=== PATIENT | female | born 1970 | race African-American/Black ===

== ENCOUNTER 2024-11-17 12:12 | Emergency (ER) | payer OTHER, SELFPAY ==
--- NOTE | ~2024-11-17 | XR_ITS ---
XR hip BI 2V w AP pelvis 11/17/2024 13:18 Indication: Hip pain Procedure: 2 views each hip Comparison: No prior studies for comparison. Findings: There are surgical changes consistent with lower lumbar fusion, partially visualized. There is mild osteoarthritis of the hips. There are pelvic phleboliths. No acute fracture or traumatic mal alignment. 2 sclerotic lesions are present in the left ilium. Impression: 1: Sclerotic lesions of the left ilium which may represent benign bone islands, although metastatic d isease is not excluded. Correlate for history of malignancy. Recommend correlation with outside image s to assess stability. Reviewed, dictated and finalized at location B. Impression: 1: Sclerotic lesions of the left ilium which may represent benign bone islands, although metastatic disease is not excluded. Correlate for history of malignan cy. Recommend correlation with outside images to assess stability.
--- NOTE | ~2024-11-17 | CT_ITS ---
EXAMINATION: CT lumbar spine wo con DATE: 11/17/2024 13:02 INDICATION: Low back pain TECHNIQUE: Computed tomography (CT) of the lumbar spine was performed without intravenous contrast. A utomated exposure control and iterative reconstruction technique were employed. The dose-length produ ct was 165.14 mGy-cm. COMPARISON: None FINDINGS: Postoperative change of prior L4 and L5 laminectomies and Instrumented anterior and posterior spinal fusion at L4-L5 and L5-S1 with interbody bone graft cages at both levels and bilateral vertical stacy and pedicle screw fixation. There is no evident solid osseo us bridging yet apparent either anteriorly or posteriorly at either level. There is 3 mm anterolisthe sis L4 on L5 and 7 mm anterolisthesis L5 on S1. The interbody device at L5-S1 appears to have subluxe d slightly posteriorly with 4 mm wide lucency along the anterior margin of the device which projects approximately 3 mm posteriorly to posterior endplate margin of S1 and 10 mm posterior to the posterio r margin of L5. Vertebral body heights are normal. No acute fracture. Mild disc height loss at L3-L4. 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 Sclerotic bone i sland at the left innominate bone. Paravertebral soft tissues are unremarkable. The following disc le vels are specifically discussed: T12-L1: The disc does not extend beyond the endplate margin. There is mild bilateral facet joint oste oarthritis. There is no neural foraminal stenosis. There is no central canal stenosis. L1-L2: The disc does not extend beyond the endplate margin. There is mild bilateral facet joint osteo arthritis. There is no neural foraminal stenosis. There is no central canal stenosis. L2-L3: The disc does not extend beyond the endplate margin. There is mild bilateral facet joint osteo arthritis. There is no neural foraminal stenosis. There is no central canal stenosis. L3-L4: The margins of the disc are unable be discerned due to streak artifact from the metallic instr umentation. There is moderate bilateral facet joint osteoarthritis. There is mild bilateral neural fo raminal stenosis. There is suggestion up to moderate central canal stenosis resulting from bilateral ligamentum flavum hypertrophy however assessment is severely limited by the metallic streak artifact. L4-L5: Anterior and posterior spinal fusion procedure with posterior decompression and no evident wilner tral canal stenosis. There is no neural foraminal stenosis. L5-S1: Anterior and posterior spinal fusion procedure with posterior decompression. The posterior lab rum projecting interbody fusion device described above appears to narrow the left lateral recess. The re is mild to moderate bilateral neural foraminal stenosis. There is no central canal stenosis. IMPRESSION: 1. Postoperative changes in the inferior lumbar spine including L4 and L5 laminectomies and managemen t anterior and posterior spinal fusion as detailed above. This most notable for suggestion of some po sterior subluxation of the interbody fusion device at L5-S1 which narrows the left lateral recess. 2. Mild spondylosis in the more cephalad lumbar spine. Reviewed, dictated and finalized at location A. IMPRESSION: 1. Postoperative changes in the inferior lumbar spine including L4 and L5 kailyn ectomies and management anterior and posterior spinal fusion as detailed above. This most notable for suggestion of some posterior subluxation of the interbod y fusion device at L5-S1 which narrows the left lateral recess. 2. Mild spondylosis in the more cephalad lumbar spine.
[2024-11-17 12:23] VITALS: BP 133/90; PULSE 81; RESP 16; TEMP 36.4; O2SAT 98
--- NOTE | 2024-11-17 12:57 | ED_ITS ---
HPI - General Adult General Chief complaint: Extremity Injury, Lower <Claudia Bass PA-C - Last Filed: 11/17/24 12:59> Stated complaint: Fluid on right knee, right hip pain <Claudia Bass PA-C - Last Filed: 11/17/24 12:59> Time Seen by Provider: 11/17/24 14:18 <Claudia Bass PA-C - Last Filed: 11/17/24 12:59> Focused HPI: 54-year-old female presents to emergency department for low back pain, pain to her hips and pelvis. Patient has had back pain for several years, underwent lumbar spine surgery in 2022. States over the past month the pain is worsened and radiates down both of her legs. Denies saddle anesthesia, bowel or bladder incontinence or urinary retention. No fevers. States she did have a fall about a week ago where she slipped down 4 steps. Landed on her buttock. Did not hit her head or lose consciousness. Has been having to ambulate with a walker due to pain. GENERAL: Well-appearing, well-nourished, and in no acute distress. HEAD: Normocephalic, atraumatic. CHEST: Clear to auscultation. ?No respiratory distress. BACK: Well-healed lumbar surgical scar with diffuse tenderness to the lumbar spine paraspinous muscles, posterior pelvis and iliac crest, bilateral piriformis muscles and bilateral hips. HEART: Regular rate and rhythm.? NEURO: ?Alert and oriented x3. Patient screened in triage and initial orders placed.? ?Additional care and disposition to be based upon?diagnostic testing and treatment. <Claudia Bass PA-C - Last Filed: 11/17/24 12:59> History of Present Illness HPI narrative: Patient 54-year-old female who presents emergency department chief complaint of low back and pelvis pain. The patient has prior history of a lumbar spine surgery [facility] reports she was seen at [facility] last week reports she has an appointment to see her spine surgeon in 2 weeks reports that she did have a fall about a week ago and reports that she has had no saddle anesthesia no bowel or bladder incontinence <Caio Hoffman MD - Last Filed: 11/17/24 15:57> Related Data Allergies/adverse reactions: Allergies Allergy/AdvReac Type Severity Reaction Status Date / Time No Known Allergies Allergy Verified 11/17/24 12:14 <Claudia Bass PA-C - Last Filed: 11/17/24 12:59> Review of Systems Review of Systems: A 10 system review of systems was completed on the patient and is negative except for what is stated in the HPI. Nursing and ancillary documentation was reviewed. <Caio Hoffman MD - Last Filed: 11/17/24 15:57> Exam Narrative: GENERAL: Well-appearing, well-nourished, and in no acute distress. HEAD: Normocephalic, atraumatic. EYES: PERRLA and EOMI. ENT: Nares clear, no rhinorrhea or epistaxis. Mucous membranes moist. NECK: Supple. CHEST: Clear to auscultation. No respiratory distress. HEART: Regular rate and rhythm. No murmur heard. Normal peripheral pulses. ABDOMEN: Soft, nontender, nondistended, normal active bowel sounds. EXTREMITIES: Normal range of motion. No edema. SKIN: Warm, dry, no rash. NEURO: No focal deficits. Alert and oriented x3. PSYCH: Normal mood and affect. <Caio Hoffman MD - Last Filed: 11/17/24 15:57> Course Vital Signs Vital signs: Vital Signs Temperature 36.4 C 11/17/24 12:23 Pulse Rate 81 11/17/24 12:23 Respiratory Rate 16 11/17/24 12:23 Blood Pressure 133/90 11/17/24 12:23 Pulse Oximetry 98 11/17/24 12:23 Temperature 36.4 C 11/17/24 12:23 Pulse Rate 81 11/17/24 12:23 Respiratory Rate 16 11/17/24 12:23 Blood Pressure 133/90 11/17/24 12:23 Pulse Oximetry 98 11/17/24 12:23 <Claudia Bass PA-C - Last Filed: 11/17/24 12:59> Vital Signs Temperature 36.4 C 11/17/24 12:23 Pulse Rate 81 11/17/24 12:23 Respiratory Rate 16 11/17/24 12:23 Blood Pressure 133/90 11/17/24 12:23 Pulse Oximetry 98 11/17/24 12:23 Temperature 36.4 C 11/17/24 12:23 Pulse Rate 81 11/17/24 12:23 Respiratory Rate 16 11/17/24 12:23 Blood Pressure 133/90 11/17/24 12:23 Pulse Oximetry 98 11/17/24 12:23 <Caio Hoffman MD - Last Filed: 11/17/24 15:57> Medical Decision Making MDM Narrative Medical decision making narrative: Differential diagnosis includes hardware failure, low back pain CT scan was obtained of the lumbar spine which did show some narrowing but no evidence of hardware failure <Caio Hoffman MD - Last Filed: 11/17/24 15:57> Vital Signs Vital Signs: Vital Signs Temperature 36.4 C 11/17/24 12:23 Pulse Rate 81 11/17/24 12:23 Respiratory Rate 16 11/17/24 12:23 Blood Pressure 133/90 11/17/24 12:23 Pulse Oximetry 98 11/17/24 12:23 Temperature 36.4 C 11/17/24 12:23 Pulse Rate 81 11/17/24 12:23 Respiratory Rate 16 11/17/24 12:23 Blood Pressure 133/90 11/17/24 12:23 Pulse Oximetry 98 11/17/24 12:23 <Claudia Bass PA-C - Last Filed: 11/17/24 12:59> Vital Signs Temperature 36.4 C 11/17/24 12:23 Pulse Rate 81 11/17/24 12:23 Respiratory Rate 16 11/17/24 12:23 Blood Pressure 133/90 11/17/24 12:23 Pulse Oximetry 98 11/17/24 12:23 Temperature 36.4 C 11/17/24 12:23 Pulse Rate 81 11/17/24 12:23 Respiratory Rate 16 11/17/24 12:23 Blood Pressure 133/90 11/17/24 12:23 Pulse Oximetry 98 11/17/24 12:23 <Caio Hoffman MD - Last Filed: 11/17/24 15:57> Discharge Plan Discharge Clinical Impression: Low back pain <Claudia Bass PA-C - Last Filed: 11/17/24 12:59> Patient Disposition: Home <Claudia Bass PA-C - Last Filed: 11/17/24 12:59> Condition: Stable <PATRICIA Ayala Last Filed: 11/17/24 12:59> Instructions: Antibiotic Form, Acute Low Back Pain (ED) <PATRICIA Ayala Last Filed: 11/17/24 12:59> Additional Instructions: Your CT scan showed that the hardware is in place there is some narrowing in the spine below the area of the hardware it is recommended that you follow-up with your spine surgeon <Claudia Bass PA-C - Last Filed: 11/17/24 12:59> Patient Language: Estonian <PATRICIA Ayala Last Filed: 11/17/24 12:59> Prescriptions: New lidocaine [Lidoderm] 5 % adhesive patch,medicated 1 patch topical DAILY Qty: 15 0RF Rx Instructions: leave on most painful area for up to 12 hrs prednisone 20 mg tablet 40 mg PO DAILY 5 Days Qty: 10 0RF hydrocodone-acetaminophen 5-325 mg tablet 1 tablet PO Q6H PRN (Reason: pain) 3 Days Qty: 12 0RF diclofenac potassium 50 mg tablet 50 mg PO TID PRN (Reason: pain) Qty: 30 0RF <Claudia Bass PA-C - Last Filed: 11/17/24 12:59> Follow-up/Referrals: PHYSICIAN NOT ON STAFF,NONSTAFF [Non-Staff] - <Claudia Bass PA-C - Last Filed: 11/17/24 12:59> Time of Disposition: 15:54 <Claudia Bass PA-C - Last Filed: 11/17/24 12:59> 15:54 <Caio Hoffman MD - Last Filed: 11/17/24 15:57>
--- OUTSIDE RECORDS SUMMARY | 2024-11-17 13:21 | XMS_ITS | Clinical Summary ---
Author Organization [facility] Address [address] [place] [address] Care Team Providers Care Barrel Assembler Helper Name Role Phone Unavailable Primary Care Provider Unavailabl e Source Comments [facility],non-owned Affiliates and Associated Physician Practices is amultiple site organization consisting of ambulatory clinics and hospital sitesin [place], [place], [place] and [place]. This disclosure is being madepursuant to the Care Everywhere program and may not contain all information available regarding this patient. Last updated 18.[facility] Allergies No known active allergies Medications * Be aware that medications may not be up to date on this document. Alwaysverify current medications with the patient. tiZANidine (ZANAFLEX) 4 MG tablet Take 1 (one) tablet by mouth every 8 hours as needed 1 Active propranolol (INDERAL) 10 MG tablet Take by mouth 2 times daily 1 Active fluticasone-sa lmeterol (Advair/Wixela ) 100-50 MCG/ACT inhaler Inhale 1 (one) puff by mouth 2 times daily Active albuterol-ipra tropium (Duo-Neb) 0.5-2.5 (3) MG/3ML nebulizer solution Inhale 3 mL by mouth 4 times daily Active pregabalin (Lyrica) 75 MG capsule Take 2 (two) capsules by mouth 2 times daily Active nicotine polacrilex (Nicorette) 2 MG gumIndications :Nicotine Dependence Take 1 (one) Each by mouth as needed for Smoking Cessation Reasons: Nicotine Addiction Active acetaminophen (Tylenol) 500 MG tablet Take 1 (one) tablet by mouth every 4 hours as needed for Fever or Pain Maximum allowable Acetaminophen amount = 4 Grams (4000 mg) / 24 hours. Active traMADol (Ultram) 50 MG tablet Take 1 (one) tablet by mouth every 4 hours as needed 0 3 Active lidocaine (Lidoderm) 5 % patch Apply 1 (one) patch to skin every 24 hours Apply patch to most painful area and remove after 12 hours. May reapply a new patch 12 hours later. 30 patch 1 3 Active senna (Senokot) 8.6 MG tablet Take 1 (one) tablet by mouth once daily 30 tablet 1 3 Active Additional Information Patient not taking.Reported on 03/11/2023 naloxone HCl (Narcan) 4 MG/0.1ML nasal spray CALL 911. USE 1 SPRAY INTO 1 NOSTRIL. MAY REPEAT EVERY 2-3 MINUTES IN ALTERNATING NOSTRILS IF NO RESPONSE. 3 Each 3 Active Covid Pfizer booster bivalent 12+years 30 MCG/0.3ML SUSP injection PHARMACIST TO ADMIN 0.3 ML INTO LEFT DELTOID MUSCLE. BUILDING CLEANER: M-Factor, VIS: 07/11/22, LOT: [id number], EXP DATE: 09/03/23. VIS GIVEN: 10/14/22 0.3 mL 3 Active Additional Information Patient not taking.Reported on 10/24/2022 oxyCODONE (Oxy-Ir) 5 MG capsuleIndicat ions:Late effects of spine fusion Take 1 (one) capsule by mouth every 6 hours as needed for Pain 45 capsule 3 Active Additional Information Patient not taking.Reported on 03/11/2023 cyclobenzaprin e (Flexeril) 10 MG tabletIndicati ons:S/P lumbar spinal fusion,Spasm of muscle TAKE 1 TABLET BY MOUTH THREE TIMES A DAY ( EVERY 8 HOURS ) 90 tablet 3 3 Active Hospital, Clinic, or Other Facility Administered Medication Ordered Dose Route Frequency Start Date End Date Status oxyCODONE-acetaminoph en (Percocet) 5-325 MG tablet 1 tabletIndications:Fus ion of lumbar spine 1 tablet PO EVERY 8 HOURS PRN 12/20/2022 Active oxyCODONE-acetaminoph en (Percocet) 5-325 MG tablet 1 tabletIndications:Fus ion of lumbar spine 1 tablet PO EVERY 8 HOURS PRN 12/20/2022 Active Active Problems Problem Noted Date Diagnosed Date Lumbar stenosis with neurogenic claudication 09/2022 DEVIN (acute kidney injury) 06/25/2021 Overview (06/11/2022): Last Assessment & Plan: Patient presented with hypotension and elevated creatinine likely secondary to dehydration. Treat with IV fluids. Monitor BMP closely Facial droop 06/25/2021 Overview (06/11/2022): Last Assessment & Plan: Patient presented with left-sided facial drooping with suspicion for acute or subacute stroke. CT scan was negative. Treat with aspirin and statins. Will initiate stroke workup and get 2D echo and carotid Doppler. Neurology has been consulted 06/26/21-Pt still complaining of severe headaches.Will get MRI today.BUN/Creat is improved.Cont to monitor closely. Left-sided headache 06/24/2021 Overview (06/11/2022): Last Assessment & Plan: Patient presented with left-sided headache. Treat with pain management. 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 Continue to monitor closely. Anemia 05/07/2021 Resolved Problems Problem Noted Date Diagnosed Date Resolved Date Acute cystitis 06/25/2021 10/03/2022 Overview (06/11/2022): Last Assessment & Plan: Pt c/o of flank pain and found to be hypotensive.Treated with iv fluids and iv antibiotics.Cont iv Rocephine. Dehydration 06/25/2021 06/25/2022 Overview (06/11/2022): Last Assessment & Plan: Treat with IV fluids. Encounters Date Type Department Care Team Description 11/16/2024 Travel 11/15/2024 Orders Only [facility] - Neurosurgery [address], [place] [id number] Juan M Neal MD S/P lumbar fusion 11/02/2024 Travel 09/14/2024 Travel from Last 3 Months Immunizations Immunization Administration Dates Next Due INFLUENZA VACCINE, QUADR. (F LUZONE; FLULAVAL; FLUARIX; AFLURIA QUADRIVALENT; 6MO+), 0.5 ML (IIV4) 06/22/2021 Social History Tobacco Use Types Packs/Day Years Used Date Smoking Tobacco: Some Days Cigarettes Started: 04/23/1989 Smokeless Tobacco: Never Tobacco Cessation:Ready to Q uit: Not Asked; Counseling Given: Not Answered Comments:Last cigarette 07/28/2022 Alcohol Use Standard Drinks/Week Comments Yes 2 (1 standard drink = 0.6 oz pur e alcohol) AUDIT-C Answer Date Recorded Q1: How often do you have a drink containing alc ohol? Monthly or less 10/03/2022 Q2: How many drinks containi ng alcohol do you have on a typical day when you are drinking? 1 or 2 10/03/2022 Q3: How often do you have si x or more drinks on one occasion? Less than monthly 10/03/2022 PHQ-2 Answer Date Recorded PHQ2 TOTAL SCORE 0 06/11/2022 Comments No Sex and Gender Information Value Date Recorded Sex Assigned at Not on file Legal Sex Female 9:04 AM CDT Gender Identity Not on file Sexual Orientation Not on file Last Filed Vital Signs Vital Sign Reading Time Taken Comments Blood Pressure 118/83 03/11/2023 10:21 AM CDT Pulse 71 03/11/2023 10:21 AM CDT Temperature 36.4 C (97.6 F) 03/11/2023 10:21 AM CDT Respiratory Rate 18 10/24/2022 2:28 PM CDT Oxygen Saturation 96% 03/11/2023 10:21 AM CDT Inhaled Oxygen Concentration - - Weight 60.3 kg (133 lb) 03/11/2023 10:21 AM CDT Height 172.7 cm (5' 8 ) 03/11/2023 10:21 AM CDT Body Mass Index 20.22 03/11/2023 10:21 AM CDT Plan of Treatment Upcoming Encounters Date Type Department Care Team (Late st Contact Info) Description 12/07/2024 10:45 AM CDT Office Visit [facility] - Neurosurgery [address] [place] [address], [place] [address] CoppensJuan M MD [address] [place] [address] [place] [address] Health Maintenance Due Date Last Done Comments COLOGUARD (AGES 45-75) - COL ON CA SCREENING 1971 COLON MONITORING 1971 COLONOSCOPY - COLON CA SCREENING 1971 CT COLONOGRAPHY - COLON CA SCREENING 1971 Colorectal Cancer Screening 1971 FIT - COLON CA SCREENING 1971 FLEX SIG - COLON CA SCREENING 1971 LIPID TESTING 1971 MAMMOGRAM 1971 PAP SMEAR 1971 HIV SCREENING 1986 HEPATITIS C SCREENING 08/30/1989 DTAP/TDAP/TD VACCINES (1 - Tdap) 1990 HEPATITIS B VACCINE (1 of 3 - 19+ 3-dose series) 1990 PNEUMOCOCCAL VACCINE 50+ (1 of 2 - PCV) 1990 ZOSTER VACCINE (1 of 2) 2021 COVID-19 VACCINE (4 - 2023-2 5 season) 2024 10/14/2022, 11/30/2020, 10/26/2020 DEPRESSION SCREENING 08/04/2024 06/11/2022 INFLUENZA VACCINE (Season Ended) 2025 05/23/2022, 06/22/2021, 06/17/2019 HIB VACCINE Aged Out No longer eligi ble based on patient's age to complete this topic HPV VACCINE Aged Out No longer eligi ble based on patient's age to complete this topic MENINGOCOCCAL (Group B) VACCINE SHARED DECISION-MAKING Aged Out No longer eligible based on patient's age to complete this topic MENINGOCOCCAL GROUPS A/C/Y/W VACCINE Aged Out No longer eligible b ased on patient's age to complete this topic Medical Devices Implanted Type Area Human Resources Designate Device Identifier Shelf Expiration Date Model / Serial / Lot Payne Spinal Graft/Payne Dbf Inject 9cc Implanted:Qty: 1 on 10/03/2022 by Juan M Neal MD at [facility] N/A: Spine Lumbar Med[employer] Inc 08/22/2024 [id number] / [id number] / N/A Screw Set Ti Spnl Brk Off Cd Hzn Nonster Implanted:Qty: 6 on 10/03/2022 by Juan M Neal MD at [facility] N/A: Spine Lumbar [employer] Inc [id number] / / Screw 7.5mm 50mm Ma Spne Solera Cd Hzn Implanted:Qty: 4 on 10/03/2022 by Juan M Neal MD at [facility] N/A: Spine Lumbar [employer] Inc [id number] / / Screw 7.5mm 40mm Ma Spne Solera Cd Hzn Implanted:Qty: 2 on 10/03/2022 by Juan M Neal MD at [facility] N/A: Spine Lumbar [employer] Inc [id number] / / Spcr Spnl 7mm Catalyft Pl Lng - Sn/A Implanted:Qty: 2 on 10/03/2022 by Juan M Neal MD at [facility] N/A: Spine Lumbar Medtronic Sofamor Danek Spine 08/23/2030 [id number] / N/A / [id number] Medtronic Payne Dbf Inject 9cc Implanted:Qty: 1 on 10/03/2022 by Juan M Neal MD at [facility] N/A: Spine Lumbar Med[employer]onic Inc 08/14/2024 [id number] / [id number] / N/A Bang Spnl 60mm 5.5mm Cd Hzn Crv Ti Cp4 - Sn/A Implanted:Qty: 2 on 10/03/2022 by Juan M Neal MD at [facility] N/A: Spine Lumbar Med[employer]onic Inc [id number] / N/A / N/A Insurance [facility] [place] [address] [address] [facility] [place] [address] [place] [address] [facility] [address] [address] [address] [facility] [address] [address] [place] [address] [place] [address] [facility] [place] [address] [facility] [place] [address] [facility] [address] [address] [address] [place] [address] [facility] [address] [address] [place] [address] [place] [address] [facility] [place] [address] [facility] [id number] [facility] [place] [address] [place] [address] [place], [place] [id number] [place] [address] [place] [address] Advance Directives * Full Code (Latest Code Status on File) Date Activated Date Inactivated Comments 10/03/2022 12:13 PM 10/07/2022 12:38 PM
--- OUTSIDE RECORDS SUMMARY | 2024-11-17 13:21 | XMS_ITS | Clinical Summary ---
Author Organization [facility] Address [address] [place] [id number] Care Team Providers Care Nitro Man Name Role Phone Kojo Stallworth MD Primary Care Provider [phone] Social History Tobacco Use Types Packs/Day Years Used Date Smoking Tobacco: Never Assessed Comments Unknown Sex and Gender Information Value Date Recorded Sex Assigned at Not on file Legal Sex Female 7:50 PM CDT Gender Identity Not on file Sexual Orientation Not on file Plan of Treatment Health Maintenance Due Date Last Done Comments Cervical Cancer Screening Pa p Smear (Age 30 to 64) Every 3 Years 1971 Colorectal Cancer Screening Colonoscopy (10 Years) 1971 Annual Physical 1974 Hepatitis C 1989 DTaP, Tdap and Td Vaccines ( 1 - Tdap) 1990 Hepatitis B Vaccines (1 of 3 - 19+ 3-dose series) 1990 Cervical Cancer Screening Pa p with HPV Testing (Age 30 to 64) Every 5 Years 2001 Cervical Cancer Screening with HPV 2001 Mammogram Screening 2011 Zoster Vaccines (1 of 2) 2021 COVID-19 Vaccine ( - 2023-2 5 season) 2024 Meningococcal B Vaccine Aged Out No l onger eligible based on patient's age to complete this topic Meningococcal Vaccine Aged Out No ronan milo eligible based on patient's age to complete this topic Pneumococcal Vaccine: Pediat rics (0 to 5 Years) and At-Risk Patients (6 to 49 Years) Aged Out No longer eligible b ased on patient's age to complete this topic RSV Immunizations Under 20 Months Aged Out No longer eligible based on patient's age to complete this topic Care Teams Nitro Man Relationship Specialty Start Date End Date Kojo Stallworth MD [address] [address] PCP - General 01/26/15
--- OUTSIDE RECORDS SUMMARY | 2024-11-17 13:21 | XMS_ITS | Clinical Summary ---
Author Organization [facility] Address [address] [place] [address] Care Team Providers Care Surgical Training Specialist Name Role Phone Kooj Stallworth MD Primary Care Provider Allergies No known active allergies Medications albuterol HFA (PROVENTIL HFA,VENTOLIN HFA,PROAIR HFA) 90 mcg/actuation inhaler INHALE 2 PUFFS BY MOUTH NEEDED 04/04/2021 Active propranoloL (INDERAL) 10 mg tablet Take 1 tablet (10 mg total) by mouth 2 (two) times a day 04/11/2021 Active tiZANidine (ZANAFLEX) 4 mg tablet Take 1 tablet (4 mg total) by mouth every 8 (eight) hours as needed 04/11/2021 Active acetaminophen (TYLENOL) 325 mg tabletIndicatio ns:Fever,Pain Take 2 tablets (650 mg total) by mouth every 4 (four) hours as needed for pain 12 tablet 11/21/2023 Active NIFEdipine (PROCARDIA XL/ADALAT CC) 30 mg 24 hr tablet Take 1 tablet (30 mg total) by mouth daily 30 tablet 11/22/2023 Active oxyCODONE-aceta minophen (PERCOCET) 5-325 mg per tabletIndicatio ns:Pain Take 1 tablet by mouth every 8 (eight) hours as needed for other (Mod Pain) 8 tablet 11/21/2023 Active HYDROcodone-blake taminophen (NORCO) 5-325 mg per tabletIndicatio ns:Pain Take 1 tablet by mouth every 6 (six) hours as needed for pain 8 tablet 11/01/2024 Active Active Problems Problem Noted Date Diagnosed Date Cellulitis 11/19/2023 Cellulitis of right foot 11/18/2023 Facial droop 06/25/2021 Assessment & Plan (06/26/2021 7:17 PM CREDIT COUNSELOR): Patient presented with left-sided facial drooping with suspicion for acute or subacute stroke. CT scan was negative. Treat with aspirin and statins. Will initiate stroke workup and get 2D echo and carotid Doppler. Neurology has been consulted 06/26/21-Pt still complaining of severe headaches.Will get MRI today.BUN/Creat is improved.Cont to monitor closely. Dehydration 06/25/2021 Assessment & Plan (06/25/2021 1:11 PM CREDIT COUNSELOR): Treat with IV fluids. DEVIN (acute kidney injury) 06/25/2021 Assessment & Plan (06/25/2021 1:12 PM CREDIT COUNSELOR): Patient presented with hypotension and elevated creatinine likely secondary to dehydration. Treat with IV fluids. Monitor BMP closely Acute cystitis 06/25/2021 Assessment & Plan (06/25/2021 10:01 PM CREDIT COUNSELOR): Pt c/o of flank pain and found to be hypotensive.Treated with iv fluids and iv antibiotics.Cont iv Rocephine. Left-sided headache 06/24/2021 Assessment & Plan (06/25/2021 1:08 PM CREDIT COUNSELOR): Patient presented with left-sided headache. Treat with pain management. 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 Continue to monitor closely. Anemia 05/07/2021 Encounters Date Type Department Care Team Description 11/01/2024 5:01 PM CDT - 11/01/2024 6:45 PM CDT Emergency [facility] [address] [place] [address] Bilateral hip pain (Primary Dx) Discharge Disposition: Discharge to home or self care from Last 3 Months Immunizations Immunization Administration Dates Next Due Influenza, Quadrivalent, Spl it, Preservative Free, Intramuscular 06/22/2021 Pfizer SARS-CoV-2 Monovalent Vaccination (12+ Yrs) PURPLE 11/30/2020,10/26/2020 Surgical History Surgery Date Site/Laterality Comments TUBAL LIGATION 09/14/2001 SECTION Medical History Medical History Date Comments Hypertension Mitral valve prolapse Osteoarthritis Degenerative disc disease, lumbar Sciatica COPD (chronic obstructive pulmonary disease) (HC C) Raynaud disease Pulmonary nodules Mediastinal mass Abdominal hernia Depression Family History Medical History Relation Name Comments Alcohol abuse Father Depression Mother Hypertension Mother Lung cancer Sister 2 Dinorah Relation Name Status Comments Brother Germain Alive Father Mother Alive Sister 1 Juan Miguel Alive Sister 2 Dinorah Social History Tobacco Use Types Packs/Day Years Used Date Smoking Tobacco: Some Days Cigarettes 0.3 35 Smokeless Tobacco: Former Tobacco Cessation:Ready to Q uit: Yes; Counseling Given: Yes Comments:5 or less daily Alcohol Use Standard Drinks/Week Comments Never 0 (1 standard drink = 0.6 oz pur e alcohol) [facility] Utilities Answer Date Recorded In the past 12 months has [employer], gas, oil, or water [employer] threatened to shut off services in your home? No 11/20/2023 Social Connection and Isolat ion Panel [NHANES] Answer Date Recorded In a typical week, how many times do you talk on the phone with family, friends, or neighbors? More than three times a week 11/20/2023 How often do you get togethe r with friends or relatives? More than three times a week 11/20/2023 How often do you attend chur ch or methodist services? 1 to 4 times per year 11/20/2023 Do you belong to any clubs o r organizations such as muslim groups, unions, fraternal or athletic groups, or school groups? Yes 11/20/2023 How often do you attend meet ings of the clubs or organizations you belong to? Never 11/20/2023 Are you , , di vorced, , never , or living with a partner? 11/20/2023 AUDIT-C Answer Date Recorded Q1: How often do you have a drink containing alc ohol? Never 06/20/2021 Average Number of Drinks Not on file 021 Q3: How often do you have si x or more drinks on one occasion? Never 06/20/2021 Overall Financial Resource Strain (CARDIA) Answe r Date Recorded How hard is it for you to pa y for the very basics like food, housing, medical care, and heating? Not hard at all 11/20/2023 Hunger Vital Sign Answer Date Recorded Within the past 12 months, y ou worried that your food would run out before you got the money to buy more. Never true 11/20/19 24 Within the past 12 months, t he food you bought just didn't last and you didn't have money to get more. Never true 11/20/2023 PRAPARE - Transportation Answer Date Re corded In the past 12 months, has l ack of transportation kept you from medical appointments or from getting medications? No 11/02 In the past 12 months, has l ack of transportation kept you from meetings, work, or from getting things needed for daily living? No 11/20/2023 Housing Stability Vital Sign Answer Josh e Recorded In the last 12 months, was t here a time when you were not able to pay the mortgage or rent on time? No 11/20/2023 In the last 12 months, how many places have you lived? 1 11/20/2023 In the last 12 months, was t here a time when you did not have a steady place to sleep or slept in a group home (including now)? No 11/20/2023 Personal Safety Answer Date Recorded Have you ever been in or are you currently in a harmful physical or emotional relationship or is someone making you feel afraid or unsafe? 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 on file Not on file Not on file Obstetrics History Last Filed Vital Signs Vital Sign Reading Time Taken Comments Blood Pressure 139/96 11/01/2024 6:35 PM CDT Pulse 60 11/01/2024 6:35 PM CDT Temperature 36.8 C (98.2 F) 11/01/2024 5:27 PM CDT Respiratory Rate 18 11/01/2024 6:35 PM CDT Oxygen Saturation 100% 11/01/2024 6:35 PM CDT Inhaled Oxygen Concentration - - Weight 53.5 kg (118 lb) 11/01/2024 5:27 PM CDT Height 175.3 cm (5' 9 ) 11/01/2024 5:27 PM CDT Body Mass Index 17.43 11/01/2024 5:27 PM CDT Plan of Treatment Health Maintenance Due Date Last Done Comments Cervical Cancer Screening 1971 Colon Cancer Screening-Colonoscopy 1971 Depression Screening 1971 Hepatitis C Screening 1971 DTaP/Tdap/Td Vaccine (1 - Tdap) 1982 Hepatitis B Screening 1989 Regular Well Visit/Exam 18-64 1989 Pneumococcal vaccine <65 (1 of 2 - PCV) 1990 Zoster Vaccine (1 of 2) 2021 Covid-19 Vaccine (3 - season) 2024, 10/26/2020 Influenza Vaccine (Season Ended) 2025 05/23/2022, 06/22/2021, 06/17/2019 Breast Cancer Screening-Mammogram 06/16/2025 024 Procedures Procedure Name Priority Date/Time Associated Diagnosis Comments XR HIPS BILATERAL W PELVIS 2 VIEW ED 11/01/2024 1:23 PM CDT from Last 3 Months Results * XR Hips Bilateral W Pelvis 2 View (11/01/2024 1:23 PM CDT) Anatomical Region Laterality Modality Lower Extremities, Hip, Pelvis Bilateral C omputed Radiography 11/01/2024 1:48 PM CDT Narrative 11/01/2024 1:53 PM CDT EXAM DESCRIPTION: XR HIPS BILATERAL 2 VIEWS W PELVIS REASON FOR STUDY: pain Pt with bilat hip. Low back pain, denies trauma Back surg in 2019 TECHNIQUE: Single view of the pelvis and two views of each hip. COMPARISON: CT abdomen pelvis 11/26/2013 FINDINGS: There is incompletely imaged lower lumbar spine fusion hardware. There is no acute fracture or dislocation appreciated. There are mild osteoarthritic changes of the bilateral hips. There is a small sclerotic lesion along the superior aspect of the left acetabulum which appears unchanged and likely represents a bone island. There are multiple phleboliths in the pelvis. Ywxypsix-tk-epalv amount of stool in the visualized colon. IMPRESSION: No acute osseous abnormality. 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 THIS IS AN ELECTRONICALLY VERIFIED FINAL REPORT 11/01/2024 1:53 PM - Electronically signed by Murray Blanco M.D. AM T: Report ID: [id number] Reading Location: [id number] Procedure Note Murray Blanco MD - 11/01/2024 EXAM DESCRIPTION: XR HIPS BILATERAL 2 VIEWS W PELVIS REASON FOR STUDY: pain Pt with bilat hip. Low back pain, denies trauma Back surg in 2019 TECHNIQUE: Single view of the pelvis and two views of each hip. COMPARISON: CT abdomen pelvis 11/26/2013 FINDINGS: There is incompletely imaged lower lumbar spine fusion hardware. There is no acute fracture or dislocation appreciated. There are mild osteoarthritic changes of the bilateral hips. There is a small sclerotic lesion along the superior aspect of the left acetabulum which appears unchanged and likely represents a bone island. There are multiplephleboliths in the pelvis. Otcggdkh-jt-ywyys amount of stool in the visualized colon. IMPRESSION: No acute osseous abnormality. 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 THIS IS AN ELECTRONICALLY VERIFIED FINAL REPORT 11/01/2024 1:53 PM - Electronically signed by Murray Blanco M.D. AM T: Report ID: [id number] Reading Location: [id number] Maggie HAMMOND IMG XR PROCEDURES Final Resul t from Last 3 Months Insurance Member Subscriber Plan / Payer (Ef fective 2019-Present) Name:RuizSkinny Relation to Subscriber:Self Name:Skinny Ruiz Payer ID:[id number] (NAIC) Group ID:Not on file Type:MEDICAID RISK OTHER Address: [address] [place], [place] [id number] [place] [address] [facility] Advance Directives For more information, please contact: [phone] * Full Code (Latest Code Status on File) Date Activated Date Inactivated Comments 11/18/2023 10:59 PM 11/21/2023 9:16 PM * Full Code Date Activated Date Inactivated Comments 06/24/2021 4:20 PM 06/27/2021 8:53 PM * Full Code Date Activated Date Inactivated Comments 06/20/2021 6:00 PM 06/22/2021 10:15 PM Care Teams Surgical Training Specialist Relationship Specialty Start Date End Date Kojo Stallworth MD PCP - General 12/24/18
--- OUTSIDE RECORDS SUMMARY | 2024-11-17 13:21 | XMS_ITS | Encounter Summary ---
Author Organization [facility] Address [address] [place] [address] Care Team Providers Care Bankruptcy Attorney Name Role Phone Unavailable Primary Care Provider Unavailabl e Encounter Details Date Type Department Care Team (Latest Contact Info) Description 11/16/2024 Travel Social History Tobacco Use Types Packs/Day Years Used Date Smoking Tobacco: Some Days Cigarettes Started: 04/23/1989 Smokeless Tobacco: Never Comments:Last cigarette 07/05 Alcohol Use Standard Drinks/Week Comments Yes 2 [...] on file Sexual Orientation Not on file documented as of this encounter Functional Status * Is person deaf or have serious hearing difficulty? Answer Date of Assessment Author No 10/03/2022 6:20 AM Aleta Delgado RN * Is person blind or have serious difficulty seeing? Answer Date of Assessment Author No 10/03/2022 6:20 AM Aleta Delgado RN * Does person have serious difficulty walking/climbing stairs? Answer Date of Assessment Author No 10/03/2022 6:20 AM Aleta Delgado RN * Does person have difficulty dressing/bathing? Answer Date of Assessment Author No 10/03/2022 6:20 AM Aleta Delgado RN * Does person have difficulty doing errands alone? Answer Date of Assessment Author No 10/03/2022 6:20 AM Aleta Delgado RN documented as of this encounter Mental Status * Does person have difficulty concentrating/remembering/making decisions? Answer Entry Date Author No 10/03/2022 6:20 AM Aleta Delgado RN documented in this encounter Plan of Treatment Upcoming Encounters Date Type Department Care Team (Late st Contact Info) Description 12/07/2024 10:45 AM CDT Office Visit [facility] - Neurosurgery [address] [place] [address], [place] [address] Juan M Neal MD [address] [place] [address] [place] [address] documented as of this encounter Visit Diagnoses Not on filedocumented in this encounter
--- OUTSIDE RECORDS SUMMARY | 2024-11-17 13:21 | XMS_ITS | Referral Summary ---
Author Organization [facility] Address [address] [place] [address] Care Team Providers Care Tilesetter Name Role Phone Kojo Stallworth MD Primary Care Provider [phone] Encounters Date Type Department Care Team Description 11/01/2024 5:01 PM CDT - 11/01/2024 6:45 PM CDT Emergency [address] [id number] Bilateral hip pain (Primary Dx) Discharge Disposition: Discharge to home or self care from Last 3 Months Allergies No known active allergies Medications albuterol [...] 06/25/2021 Assessment & Plan (06/26/2021 7:17 PM GRID TRIMMER): Patient presented with left-sided facial drooping with suspicion for acute or subacute stroke. CT scan was negative. Treat with aspirin and statins. Will initiate stroke workup and get 2D echo and carotid Doppler. Neurology has been consulted 06/26/21-Pt still complaining of severe headaches.Will get MRI today.BUN/Creat is improved.Cont to monitor closely. Dehydration 06/25/2021 Assessment & Plan (06/25/2021 1:11 PM GRID TRIMMER): Treat with IV fluids. DEVIN (acute kidney injury) 06/25/2021 Assessment & Plan (06/25/2021 1:12 PM GRID TRIMMER): Patient presented with hypotension and elevated creatinine likely secondary to dehydration. Treat with IV fluids. Monitor BMP closely Acute cystitis 06/25/2021 Assessment & Plan (06/25/2021 10:01 PM GRID TRIMMER): Pt c/o of flank pain and found to be hypotensive.Treated with iv fluids and iv antibiotics.Cont iv Rocephine. Left-sided headache 06/24/2021 Assessment & Plan (06/25/2021 1:08 PM GRID TRIMMER): Patient presented with left-sided headache. Treat with pain management. 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 Continue to monitor closely. Anemia 05/07/2021 Immunizations Immunization Administration Dates Next Due Influenza, Quadrivalent, Spl it, Preservative Free, Intramuscular 06/22/2021 Pfizer SARS-CoV-2 Monovalent Vaccination (12+ Yrs) PURPLE 11/30/2020,10/26/2020 Social History Tobacco Use Types Packs/Day Years Used Date Smoking Tobacco: Some Days Cigarettes 0.3 35 Smokeless Tobacco: Former Tobacco Cessation:Ready to Q uit: Yes; Counseling Given: Yes Comments:5 or less daily Alcohol Use Standard Drinks/Week Comments Never 0 (1 standard drink = 0.6 oz pur e alcohol) [facility] [employer] Answer Date Recorded In the past 12 months has e [employer], gas, oil, or water [employer] threatened to shut off services in your [...] often do you attend chur ch or uatsdin services? 1 to 4 times per year 11/20/2023 Do you belong to any clubs o r organizations such as faith groups, unions, fraternal or athletic groups, or [...] place to sleep or slept in a long term (including now)? No 11/20/2023 Personal Safety Answer Date Recorded Have you ever been in or are you currently in a harmful physical or emotional relationship or is someone making you feel afraid or unsafe? 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 Plrjpgrr-qr-eyjxp amount of stool in the visualized colon. IMPRESSION: No acute osseous abnormality. 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 THIS IS AN ELECTRONICALLY VERIFIED FINAL REPORT 11/01/2024 1:53 PM - Electronically signed by Murray Blanco M.D. AM T: Report ID: [id number] Reading Location: [id number] Procedure Note Murray Blanco MD - 11/01/2024 [...] island. There are multiplephleboliths in the pelvis. Gaciglml-jn-ljrwi amount of stool in the visualized colon. IMPRESSION: No acute osseous abnormality. 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 THIS IS AN ELECTRONICALLY VERIFIED FINAL REPORT 11/01/2024 1:53 PM - Electronically signed by Murray Blanco M.D. AM T: Report ID: [id number] Reading Location: [place] [address] Maggie HAMMOND IMG XR PROCEDURES Final Resul t from Last 3 Months Insurance [facility] Advance Directives For more information, please contact: [phone] * Full Code (Latest Code Status on File) Date Activated Date Inactivated Comments 11/18/2023 10:59 PM 11/21/2023 9:16 PM * Full Code Date Activated Date Inactivated Comments 06/24/2021 4:20 PM 06/27/2021 8:53 PM * Full Code Date Activated Date Inactivated Comments 06/20/2021 6:00 PM 06/22/2021 10:15 PM Care Teams Tilesetter Relationship Specialty Start Date End Date Kojo Stallworth MD PCP - General 12/24/18
--- OUTSIDE RECORDS SUMMARY | 2024-11-17 13:21 | XMS_ITS | Encounter Summary ---
Author Organization [facility] Address [address] [place] [address] Care Team Providers Care Farm Implement Engine Mechanic Name Role Phone Unavailable Primary Care Provider Unavailabl e Encounter Details Date Type Department Care Team (Late st Contact Info) Description 11/15/2024 Orders Only [facility] - Neurosurgery [address] [place] [address], [place] [id number] Juan M Neal MD [address] [place] [address] [place] [address] S/P lumbar fusion Social History Tobacco Use Types Packs/Day Years [...] Office Visit [facility] - Neurosurgery [address] [place] [address], [place] [address] Juan M Neal MD [address] [place] [address] [place] [address] Scheduled Orders Name Type Priority Associated Diagnoses Orde r Schedule XR Lumbar Spine 4Vw or More Imaging Routine S/P lumbar fusion 1 Occurrences starting 11/15/2024 until 11/15/2025 documented as of this encounter Visit Diagnoses Diagnosis S/P lumbar fusion- Primary Arthrodesis status documented in this encounter
--- OUTSIDE RECORDS SUMMARY | 2024-11-17 13:22 | XMS_ITS | Data Portability ---
Author Organization [facility] Address [address] [place] [address] Care Team Providers Care Flower Buncher Or Picker Name Role Phone BETTYE STALLWORTH Primary Care Provider [phone] Assessment No assessment recorded. Plan of Treatment Reminders Order Date Submit Date Provider Last Modified By Organization Details Last Modified Time Details Appointments ANY 15 2024 10:30A M Keaton Swartz MD Not available Not available Not available Lab TSH, serum or plasma 2024 025 [facility], [address] [place] [address], [address], [place], [address], 11/15/2024 13:12:05 CBC 2024 025 [facility], [address] [place] [address], [address], [place], [address], 11/15/2024 13:12:05 lipid panel, serum 2024 025 [facility], [address] [place] [address], [address], [place], [address], 11/15/2024 13:12:05 CMP, serum or plasma 2024 025 [facility], [address] [place] [address], [address], [place], [address], 11/15/2024 13:12:05 HbA1c (hemoglo bin A1c), blood [address] [facility], [address], [address], [place], [address], 11/15/2024 13:12:06 Referral neurolog ical surgeon referral 2023 024 [facility] Neurosurgery, [address], [place], [address], 08/10/2024 11:35:21 orthoped ic surgeon referral 2023 024 [facility], [address], [place], [address], 09/30/2024 16:53:59 Procedures None recorded . Surgeries None recorded . Imaging LDCT, chest, for lung cancer screenin g 2024 025 [facility] ([facility]), [address] [facility] [place], [address], 11/03/2024 10:30:44 PFT, complete 2024 025 [facility] [place] ([facility]), [address] [place], [address], 11/17/2024 04:35:46 XR, knee, 3 view 2023 024 [facility] ([facility]), [address] [place], [address], 11/08/2024 09:44:23 XR, chest, 2 view 2023 024 [facility] ([facility]), [address] [place], [address], 08/26/2024 15:51:46 Medication Orders tramadol 50 mg tablet 2024 025 [id number], [address] [place] [address], [id number], 11/05/2024 10:13:24 proprano lol 10 mg tablet 2024 025 [facility] #[id number], [address] [place] [address], [id number], 11/05/2024 10:13:27 Advair Diskus 250 mcg-50 mcg/dose powder for inhalati on 2024 025 [facility] #[id number], [address] [place] [address], [id number], 10/27/2024 11:51:40 albutero l sulfate 2.5 mg/3 mL (0.083 %) solution for nebuliza tion 2024 025 [facility] #29815, [address] [place] [address], [id number], 10/27/2024 11:51:45 albutero l sulfate HFA 90 mcg/actu ation aerosol inhaler 2024 025 [facility] #70239, [address] [place] [address], [id number], 10/27/2024 11:51:40 tizanidi ne 4 mg tablet 2023 024 [facility]-00 011, [address], [id number], 08/03/2024 11:15:04 ibuprofe n 800 mg tablet 2023 024 [facility]-00 011, [address], [id number], 08/03/2024 11:15:03 Patient TargetsNo targets recorded. Patient Instructions Encounter Date Encounter Id Patient Instructions Last Modified By Organization Details Last Modified Time 08/03/2024 [id number] learning about high blood pressure balbarcha Not available 08/03/2024 11:14:11 chronic obstructive pulmonary disease (COPD): care instructions balbarcha Not available 08/03/2024 11:14:11 learning about copd and how to prevent lung infections balbarcha Not available 08/03/2024 11:14:11 11/01/2024 [id number] Go to a hospital for further evaluation of your blood pressure; failure to do so may jeopardize your health Not available 11/01/2024 11:47:15 Shared decision making with pt regarding tx and follow up plans; pt acknowledges understanding; pt states she will call her aunt and she will take her to [facility] at this time Not available 11/01/2024 11:47:45 11/05/2024 [id number] Quitting Tobacco : Care Instructions balbarcha Not available 11/05/2024 10:05:21 Reason for Referral Orthopedic Surgeon Referral for Pain of right knee joint Referring Physician: Bettye Stallworth, Internal Medicine, Encounter Date: 08/03/2024 Neurological Surgeon Referra l for Chronic back pain Referring Physician: Bettye Stallworth Internal Medicine, Encounter Date: 08/03/2024 Results Created Date Observation Date Name Description Value Unit Range Abnormal Flag Note LastModifiedBy Organization Detail LastModifiedTime 08/16/19 25 08/16/2024 MAMMO , diagn ostic , unila teral No observ ation record ed. [facility] [place] ([facility]) [address] [place], [address], 08/17/2024 22:06:21 Result Notes None recorded. Problems Name Problem SNOMED Code Status Onset Date Resolution Date Notes Provider Name and Address Organization Details Recorded Time Pain in pelvis 88945506 Active Not Available [facility] 4 18:51:20 Essential hypertens ion 11176795 Active asking for refill Not Available [facility] 4 18:51:20 Mitral valve prolapse 448226274 Active Not Available [facility] 4 18:51:20 Endometri osis (clinical ) 184758880 Active 2016 Not Available [facility] 4 18:51:20 Chronic obstructi ve pulmonary disease 76536295 Active Not Available [facility] 4 18:51:20 Tobacco user 303721271 Active Not Available [facility] 4 18:51:20 Raynaud's phenomeno n 594476818 Active 2020 Not Available [facility] 4 18:51:20 Thymoma Active 2020 Not Available [facility] 4 18:51:20 Transient cerebral ischemia 803593060 Active 2020 Not Available [facility] 4 18:51:20 Disabilit y 49845224 Active 2021 Not Available [facility] 4 18:51:20 Pain of right knee joint 05593624569 4100 Active 2022 Not Available [facility] 4 18:51:20 Mammograp hy abnormal 557664898 Active 2023 Bettye Stallworth MD Attn: [place], [address] , [place] [facility] 4 15:04:48 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 Procedures Surgical History Date Name Laterality Status Provider Name and Address Organization Details Recorded Time 07/04/20 23 Right Arthrocentesis Major Joint completed Erik Menezes MD [address] [place], [address], [place] [facility] 07/04/2023 10:38:40 03/27/20 23 Right Arthrocentesis Major Joint completed Erik Menezes MD [address] [place], [address], [place] [facility] 03/27/2023 10:44:34 06/20/20 21 total thymectomy completed Christine Rueda LPN [place] - [facility] 07/04/2021 10:44:28 01/13/20 14 Most Recent Mammogram completed Tina Withouse [place] - [facility] 06/03/2017 16:31:57 09/14/19 02 Tubal Ligation completed Tina [place]ouse [place] - [facility] 06/03/20 17 16:31:59 10/05/19 00 Caesarean Section completed Tina Withouse [place] - [facility] 06/03 16:31:59 Imaging Results Imaging Date Name Status LastModified by Organiz ation Details LastModified Time 08/16/2024 MAMMO, diagnostic, unilateral completed [facility] [place] ([facility] [address] [place], [address], 08/17/2024 22:06:21 Procedure Notes None recorded. Medical Equipment None Reported. Allergies No known drug allergies Medications Name Sig Start Date Stop Date Status Note LastModified by Organization Details LastModified Time cyclobenzap rine 10 mg tablet active Not Available Not Available Not Available methocarbam ol 500 mg tablet TAKE 1 TABLET BY MOUTH THREE TIMES DAILY NEEDED 01/27 completed Not Available Not Available Not Available acetaminoph en 325 mg tablet 12/23 completed Not Available Not Available Not Available doxycycline hyclate 100 mg capsule 12/23 completed Not Available Not Available Not Available cefuroxime axetil 250 mg tablet 12/23 completed Not Available Not Available Not Available nicotine 14 mg/24 hr daily transdermal patch Apply 1 patch every day by transderm al route. active Not Available Not Available No t Available albuterol sulfate 2.5 mg/3 mL (0.083 %) solution for nebulizatio n USE 3 ML VIA NEBULIZER THREE TIMES DAILY NEEDED active Not Available Not Available No t Available azithromyci n 250 mg tablet TAKE 2 TABLETS (500 MG) BY ORAL ROUTE ONCE DAILY FOR 1 DAY THEN 1 TABLET (250 MG) BY ORAL ROUTE ONCE DAILY FOR 4 DAYS 03/26 completed Not Available Not Available Not Available ibuprofen 800 mg tablet TAKE 1 TABLET BY MOUTH THREE TIMES DAILY NEEDED active Not Available Not Available No t Available nicotine (polacrilex ) 2 mg gum CHEW AND SWALLOW 1 GUM BY MOUTH EVERY 2 HOURS active Not Available Not Available No t Available tizanidine 4 mg tablet TAKE 1 TABLET BY MOUTH EVERY 8 HOURS NEEDED 12/31/ 2024 active Not Available Not Available Not Avai lable hydrocodone 5 mg-acetamin ophen 325 mg tablet TAKE 1 TABLET BY MOUTH EVERY 6 HOURS NEEDED FOR PAIN active Not Available Not Available No t Available Celestone Soluspan 6 mg/mL suspension for injection Take 3 mL by injection route. 12/23 completed Not Available Not Available Not Available senna 8.6 mg tablet 12/23 completed Not Available Not Available Not Available lisinopril 20 mg tablet TAKE 1 TABLET BY MOUTH EVERY DAY 07/04 completed Not Available Not Available Not Available metronidazo le 500 mg tablet Take 1 tablet twice a day by oral route with meals for 7 days. 12/23 completed Not Available Not Available Not Available nifedipine ER 30 mg tablet,exte nded release TAKE 1 TABLET (30 MG TOTAL) BY MOUTH DAILY 04/14 completed Not Available Not Available Not Available acetaminoph en 300 mg-codeine 30 mg tablet TAKE 1 TABLET BY MOUTH EVERY 12 HOURS NEEDED 07/04 completed Not Available Not Available Not Available tramadol 50 mg tablet TAKE 1 TABLET BY MOUTH THREE TIMES DAILY NEEDED active Not Available Not Available No t Available quetiapine 100 mg tablet 11/19 completed Not Available Not Available Not Available oxycodone-a cetaminophe n 5 mg-325 mg tablet 12/23 completed Not Available Not Available Not Available alprazolam 0.5 mg tablet 12/23 completed Not Available Not Available Not Available propranolol 10 mg tablet TAKE 1 TABLET BY MOUTH TWICE DAILY 2024 active Not Available Not Available Not Avai lable diphenhydra mine 50 mg/mL injection solution 11/19 completed Not Available Not Available Not Available oxycodone-a cetaminophe n 10 mg-325 mg tablet 05/13 completed Not Available Not Available Not Available nicotine (polacrilex ) 4 mg gum CHEW 1 PIECE OF GUM EVERY 2 HOURS BY ORAL ROUTE NEEDED FOR 42 DAYS. active Not Available Not Available No t Available prednisone 50 mg tablet 05/19 completed Not Available Not Available Not Available lidocaine 5 % topical patch 12/23 completed Not Available Not Available Not Available oxycodone 5 mg capsule 05/13 completed Not Available Not Available Not Available Advair Diskus 250 mcg-50 mcg/dose powder for inhalation INHALE 1 PUFF BY MOUTH TWICE DAILY active Not Available Not Available No t Available nicotine 21 mg/24 hr daily transdermal patch Apply 1 patch every day by transderm al route. 07/04 completed Not Available Not Available Not Available bisacodyl 5 mg tablet,sebastien yed release At 2:00 PM the day before the colonosco py, take all 4 tablets of Dulcolax by mouth at one time with 8 ounces of water 12/23 completed Not Available Not Available Not Available lisinopril 5 mg tablet TAKE 1 TABLET BY MOUTH DAILY active Not Available Not Available No t Available cefuroxime axetil 500 mg tablet 12/23 completed Not Available Not Available Not Available polyethylen e glycol 3350 17 gram/dose oral powder In a pitcher, mix entire bottle of Miralax in one 64 ounce bottle of yellow or green Gatorade. Beginning at 5:00 PM the evening before the colonosco py, drink 1 8-ounce glass every 15 minutes until completed . Drink 4 glasses of water after finishing this mixture 12/23 completed Not Available Not Available Not Available Anusol-HC 25 mg rectal suppository Insert 1 supposito ry twice a day by rectal route for 14 days. 04/14 completed Not Available Not Available Not Available methylpredn isolone 4 mg tablets in a dose pack 07/04 completed Not Available Not Available Not Available albuterol sulfate HFA 90 mcg/actuati on aerosol inhaler INHALE 2 PUFFS BY MOUTH DIRECTED active Not Available Not Available No t Available celecoxib 100 mg capsule Take 1 capsule twice a day by oral route for 30 days. 12/23 completed Not Available Not Available Not Available naproxen 500 mg tablet TAKE 1 TABLET BY MOUTH TWICE DAILY NEEDED FOR 15 DAYS. TAKE ON A FULL STOMACH OR WITH AN ANTACID active Not Available Not Available No t Available amoxicillin 875 mg-potassiu m clavulanate 125 mg tablet TAKE 1 TABLET BY MOUTH TWICE DAILY FOR 10 DAYS active Not Available Not Available No t Available pregabalin 75 mg capsule 05/13 completed Not Available Not Available Not Available pregabalin 150 mg capsule 05/13 completed Not Available Not Available Not Available chlorhexidi ne gluconate 0.12 % mouthwash active Not Available Not Available No t Available quetiapine 50 mg tablet 11/19 completed Not Available Not Available Not Available Symbicort 80 mcg-4.5 mcg/actuati on HFA aerosol inhaler INHALE 2 PUFFS BY MOUTH TWICE A DAY *RINSE MOUTH WITH WATER AFTER EACH USE* 03/12 completed Not Available Not Available Not Available Nicorette 4 mg buccal lozenge Take 1 tablet every 2 hours by oral route for 42 days. 04/14 completed Not Available Not Available Not Available naloxone 4 mg/actuatio n nasal spray 04/14 completed Not Available Not Available Not Available baclofen 5 mg tablet 11/19 completed Not Available Not Available Not Available Vitals Date Recorded Body height Body mass index (BMI) Body weight Provider Name and Address Organization Details Last Updated DateTime 08/03/2024 172.72 cm 19.8 kg/m2 09972.01 g Janet Cheney MA [facility] 08/03/2024 10:47:56 Date Recorded Body height Body mass index (BMI) Body weight Body temperature Oxygen saturation Oxygen saturation in Arterial blood by Pulse oximetry Heart rate Pain severity - 0-10 verbal numeric rating [Score] - Reported Respiratory rate Systolic blood pressure Diastolic blood pressure Provider Name and Address Organization Details Last Updated DateTime 5 172.72 cm 17.9 kg/m2 21218.9 g 97.7 [degF] 100 % 100 % 74 /min 0 18 /min 110 mm[Hg] 68 mm[Hg] Nicolasa Zuniga LPN [facility] 5 11:33:00 Date Recorded Body height Body mass index (BMI) Body weight Oxygen saturation Oxygen saturation in Arterial blood by Pulse oximetry Heart rate Body temperature Systolic blood pressure Diastolic blood pressure Provider Name and Address Organization Details Last Updated DateTime 5 172.72 cm 18 kg/m2 96034.0 5 g 98 % 98 % 89 /min 98.6 [degF] 204 mm[Hg] 112 mm[Hg] Tejinder Shipman MA [facility] 5 11:17:57 Date Recorded Body height Body mass index (BMI) Body weight Provider Name and Address Organization Details Last Updated DateTime 11/05/2024 172.72 cm 17.9 kg/m2 86100.9 g Janet Cheney MA [facility] 11/05/2024 09:40:35 Date Recorded Body height Body mass index (BMI) Body weight Systolic blood pressure Diastolic blood pressure Provider Name and Address Organization Details Last Updated DateTime 11/15/2024 172.72 cm 17.9 kg/m2 42927.9 g 118 mm[Hg] 74 mm[Hg] Janet Cheney MA [facility] 12:47:14 Social History Question Answer Notes LastModified by Organizat ion Details LastModified Time Tobacco Smoking Status Current Some Day Smoker Latasha singh [facility] 07/02/2023 11:06:24 Do You Have An Advance Directive? No Information not available 06/03/2017 What Is Your Level Of Alcohol Consumption? Occasional Information not available 11/15/2020 How Many Years Have You Consumed Alcohol? 5 Information not available 11/15/2020 Are You Blind Or Do You Have Difficulty Seeing? Yes Glasses Information not available 11/15/2020 Is Blood Transfusion Acceptable In An Emergency? Yes Information not available 06/03/2017 What Is Your Level Of Caffeine Consumption? None Information not available 06/03/2017 How Much Tobacco Do You Chew? None Information not available 06/03/2017 In The 14 Days Before Symptom Onset, Have You Had Close Contact With A Laboratory-confi rmed COVID-19 While That Case Was Ill? No Information not available 11/15/2020 In The 14 Days Before Symptom Onset, Have You Had Close Contact With A Person Who Is Under Investigation For COVID-19 While That Person Was Ill? No Information not available 11/15/2020 Have You Been To An Area Known To Be High Risk For COVID-19? No Information not available 11/15/2020 Are You Currently Employed? No Information not available 06/03/2017 Are You Deaf Or Do You Have Serious Difficulty Hearing? Yes Right Ear Information not available 11/15/2020 What Type Of Diet Are You Following? REGULAR Information not available 06/03/2017 Do You Or Have You Ever Used E-cigarettes Or Vape? Never Used Electronic Cigarettes Information not available 09/15/2019 Education 12 Information not available 06/03/2017 What Is The Highest Grade Or Level Of School You Have Completed Or The Highest Degree You Have Received? [id number] Information not available 11/15/2020 Are There Any Guns Present In Your Home? No Information not available 11/15/2020 Live Alone Or With Others? With Others Information not available 06/03/2017 Do You Have A Medical Power Of Electrical Subcontractor? No [email or web address] Information not available 11/19/2021 What Was The Date Of Your Most Recent Tobacco Screening? 11/01/2024 Information not available 11/01/2024 How Many Children Do You Have? 2 Information not available 06/03/2017 What Is Your Current Pack Years? 10packyears Information not available 03/17/2024 Performs Monthly Self-breast Exam? No Information not available 06/03/2017 Do You Use Protection During Sex? No Information not available 06/03/2017 What Is Your Relationship Status? Single Information not available 06/03/2017 Do You Use Your Seat Belt Or Car Seat Routinely? Yes Information not available 11/15/2020 Seat Belts Used Routinely Yes Information not available 06/03/2017 Are You Sexually Active? Yes Information not available 06/03/2017 Do You Have Smoke And Carbon Monoxide Detectors In Your Home? No Information not available 11/15/2020 At What Age Did You Start Smoking Tobacco? 15 Information not available 06/03/2017 Do You Or Have You Ever Used Smokeless Tobacco? Never Used Smokeless Tobacco Information not available 09/15/2019 How Much Tobacco Do You Smoke? No Information not available 06/03/2017 General Stress Level Low Information not available 06/03/2017 Do You Feel Stressed (tense, Restless, Nervous, Or Anxious, Or Unable To Sleep At Night)? [id number] Information not available 11/15/2020 Do You Use Any Illicit Or Recreational Drugs? Yes Information not available 11/15/2020 Do You Use Sunscreen Routinely? No Information not available 06/03/2017 Has Tobacco Cessation Counseling Been Provided? Yes Information not available 02/28/2023 On What Date Was Tobacco Cessation Counseling Provided? 11/01/2024 Information not available 11/01/2024 How Many Years Have You Smoked Tobacco? 20 Information not available 06/03/2017 Do You Or Have You Ever Used Any Other Forms Of Tobacco Or Nicotine? No Information not available 03/17/2024 Sex: Female Functional Status Question Answer Note LastModified by Organization D etails LastModified Time Are you able to care for yourself? Yes [email or web address] Information n ot available 11/15/2020 What is your exercise level? None Information not available 06/03/2017 Mental Status None recorded. Family History Relationship Description Onset Age of this Age Resolved Age Notes LastModified by Organization Details LastModified Time Maternal Grandmother Hypertensive disorder [email or web address] Not available 2016 16:31:54 Sister Diabetes mellitus [email or web address] Not available 2016 16:31:54 Notes:MATERNAL GRANDMOTHER A LSO HAS BREAST CA Medical History Condition Response Coronary Artery Disease N Other N Atrial Fibrillation N High Blood Pressure N Breast Cancer N Lung Disease N Depression N COPD N Blood Clots N Breast Problem N Anesthesia Complications N Lung Mass Y Headaches/Migraines N Anxiety Disorder N Muscle, Joint, or Bone Problems N Arthritis Y Infertility N Polyps N Acid Reflux (GERD) N Cancer N Stroke N Endometriosis N High Cholesterol N Liver Disease N Fibromyalgia N Headaches N Kidney Disease N Heart Problems N Thyroid Problems N Kidney or Bladder Problems N GI Problems N Acne N Eating Disorder N Skin Problems N Anemia N Heart Attack ([place]) N Diabetes N Ovarian Cancer N Blood Transfusions N Seizures/Epilepsy N Abuse/Domestic Violence N Asthma N Allergies N Hepatitis N Heart Disease N Pre-Eclampsia N Hypertension Y Heart Failure N Osteoporosis N Gynecological History Statement/Question Response Abnormal Pap N Flow Heavy On BCP's at Conception? N STIs/STDs N HPV Vaccine N Duration of Flow (days) 3 Most Recent Mammogram 01/12/2014 Age at Menarche 14 Current Control Method Tubal Ligat ion Age at First Child 15 Frequency of Cycle (Q days) 28 Sexually Active? Y Menses Monthly Y Sexual Problems? N LMP Definite Desired Control Method Sterilizati on Obstetrics History GPAL:G 3 P 0 0 1 2 Type Value Induced 1 Living 2 Total 3 Immunizations Vaccine Type Date Status Note Provider Nam e and Address Organization Details Recorded Time COVID-19, mRNA, LNP-S, PF, 30 mcg/0.3 mL dose 1 completed Not Available [facility] 08/14/2023 18:51:20 Influenza, split virus, quadrivalent, PF 9 completed Not Available [facility] 08/21/2019 02:38:47 Influenza, split virus, quadrivalent, preservative 2 completed Kai Summers MA [place], [place] - [facility] 05/23/2022 11:47:41 Past Encounters Encounter ID Performer Location Encounter Start Date Encounter Closed Date Diagnosis/Indication Diagnosis SNOMED-CT Code Diagnosis ICD10 Code Diagnosis Note [id number] Tina Newberry [address] [address] 08/08/2014 10:54:41 08/30/2014 18:21:47 Pain in pelvis 91975466 [id number] Tina Newberry [facility] [address] [place] [address] 07/22/2014 15:12:56 07/22/2014 17:15:04 [id number] Aaron Wright MA [facility] (Adult[facility]Fa [facility] Med) [address] [place] [address] 09/08/2014 11:08:20 09/08/2014 15:10:16 Essential hypertension 15181581 Mitral valve prolapse 484745251 Endometrio sis (clinical) 941871947 seen by RN ED and referred to [facility] [employer] service for possible surgery on Tramadol prn Chronic ob structive pulmonary disease 26876182 Tobacco user 858189420 a dvised to stop smoking. [id number] Tina Newberry [facility] (Adult/Fa m Med) [address] [place] [address] 08/10/2015 15:17:47 08/10/2015 17:54:01 Hypertensive disorder 99298058 I10 Pain in pelvis 80185428 R10.2 [id number] Bettye Stallworth MD [facility] (Adult/Fa m Med) [address] 9 08/29/2016 11:13:51 09/03/2016 11:20:48 Chronic obstructive pulmonary disease 25997301 J44.9 stable now Mitral valve prolapse 40 9413476 I34.1 contineu Propranolo l Essential hypertension 23008224 I10 as above Chronic low back pain 27 8130688 M54.5 no fall ro trauma. with left leg radiculopa thy.add motrin/tra madol/roba ida.MRI Endometrio sis (clinical) 586215852 N80.9 RN ED referral Chronic back pain 773640 002 G89.29 [id number] Bettye Stallworth MD [facility] (Adult/Fa m Med) [address] [place] [address] 02/20/2017 16:07:49 02/21/2017 09:56:32 Screening mammography 11045102 Z12.31 Essential hypertension 34432146 I10 as above Chronic back pain 181973 002 G89.29 Chronic low back pain 27 4859064 M54.5 with left leg radiculopa thy.add motrin/forest marko/robax in.Tramado l is not workingabn ormal MRI: PT/OT and pain management [id number] Bettye Stallworth MD [facility] (Adult/Fa m Med) [address] [place] [address] 01/28/2018 15:45:57 01/28/2018 16:52:19 Chronic back pain 866192767 G89.29 Tobacco user 232563445 Z 72.0 advised to stop smoking. Essential hypertension 11568829 I10 as above Chronic ob structive pulmonary disease 19872308 J44.9 stable nowsister with lung cancerobta in LDCT / Labs Chronic low back pain 27 1329019 M54.5 with left leg radiculopa thy.add motrin/forest marko/robax in.Tramado l is not workingabn ormal MRI: PT/OT and pain management Pain in pelvis 59190118 R10.2 [id number] Vadim Andrea MA [facility] (Adult/Fa m Med) [address] [place] [address] 02/17/2018 15:13:34 02/17/2018 15:40:12 [id number] Bettye Stallworth MD [facility] (Adult/Fa m Med) [address] [place] [address] 04/14/2018 10:56:19 05/01/2018 14:20:56 Chronic back pain 655507417 G89.29 abnormal MRIseen in the ER Chronic ob structive pulmonary disease 02900214 J44.9 stable nowsister with lung cancerobta in LDCT / Labs Essential hypertension 01282547 I10 as above Chronic low back pain 27 0515939 M54.5 PT/OT for nowpain management / neurosurge ry consult [id number] Bettye Stallworth MD [facility] (Adult/Fa m Med) [address] [place] [address] 04/27/2019 15:42:49 04/27/2019 16:27:04 Chronic back pain 294096044 G89.29 abnormal MRIseen in the ER Chronic ob structive pulmonary disease 43448400 J44.9 stable nowhad abnormal LDCT--> sister with lung cancerobta in CT / Labs Essential hypertension 08934650 I10 as above Chronic low back pain 27 9399729 M54.5 PT/OT for nowpain management / neurosurge ry consult [id number] [facility]ICK [facility] [address] [address] 05/19/2019 12:47:17 05/24/2019 11:39:33 Chronic obstructive pulmonary disease 56761112 J44.9 Multiple n odules of lung 633775812 R91.[address]: 02/19/18 IMPRESSION :===== 1. Multiple pulmonary nodules in anterior mediastina l mass seen. Etiology is uncertain. Neoplasm such as thymoma or other neoplasm is possible. Anterior mediastina l, alternativ sabra may be due to thymic remnant or other etiology. Pulmonary nodules can be seen in granulomat ous disease although no other evidence of this etiology is seen. Additional evaluation of possible CT surgery consultati on could be considered . Smokes tobacco daily 449 789731 Z72.0 Smoking cessation. Educated pt on importance of cessation. Educated on START The letters in the word START can help you remember the steps to take: S = Set a quit date. T = Tell family, friends, and the people around you that you plan to quit. A = Anticipate or plan ahead for the tough times you'll face while quitting. R = Remove cigarettes and other tobacco products from your home, car, and work. T = Talk to your doctor about getting help to quit. [id number] Bettye Stallworth MD [facility] (Adult/Fa m Med) [address] [place] [address] 06/17/2019 10:26:12 06/17/2019 12:22:48 Chronic back pain 296901018 G89.29 abnormal MRIseen in the ER Chronic ob structive pulmonary disease 39414441 J44.[address] stable massseen by pulmonarya dvised to stop smoking Essential hypertension 65370255 I10 not controlled [facility]RTO 1 onthto stop smoking [id number] BENJAMIN FITZPATRICK NP [facility] [address] [place] [address] 07/05/2019 12:37:45 08/03/2019 16:52:53 Hypertensive disorder 74781162 I10 Continue Medication s. Continue to monitor blood pressure. Encourage low salt diet and exercise. Pulmonary hypertension 56029813 I27.20 Hx of mitral valve prolapse, HTN. Echo eval PH Tobacco user 398505712 Z 72.0 Smoking cessation. Educated pt on importance of cessation. Sleep apnea 46060983 G47 .30 Ordering HSAT Multiple n odules of lung 747783590 R91.[address] from 06/11/19-. Ordered for CT Follow up in 6 months (12/2019). Test resul t to patient personally 159293221 Z71.[address] and PFT with pt Interstiti al lung disease 898477416 J84.9 FVC: 71 %, FEV1: 75 %... -8 % change post broncho, FEV1/FVC ratio: 85 %, T %, RV: 58%, DLCO: 62 % - minimal airway restrictio n- ordering HRCT to assess parenchyma Continue MDI as needed [id number] Bettye Stallworth MD [facility] (Adult/Fa m Med) [address] [place] [address] 09/03/2019 12:12:50 09/03/2019 12:52:45 Hypertensive disorder 26758508 I10 Chronic back pain 365943 002 G89.29 abnormal MRIseen in the ER Chronic ob structive pulmonary disease 85388906 J44.[address] stable massseen by pulmonarya dvised to stop smokingher sister from lung cancer Essential hypertension 78042525 I10 better now. to stop smoking Chronic low back pain 27 8956186 M54.5 PT/OT for nowpain management / neurosurge ry consult [id number] MARGI [facility] ([employer]) [address] [place] [address] 09/15/2019 14:01:41 09/16/2019 11:58:14 Gynecologic examination 07018004 Z01.419 last pap was \ was negative with + trichomona s was treated @ exam. also had negative HPV\CHL\GC @ that time. Screening mammography 24 192299 Z12.31 Mass of ovary 954289722 R19.09 was dx. 2013 with right hypoechoic mass of right ovary no surgery as referred @ that time r\t lost [employer] insurance now has [employer] & would like to f\u on ovarian mass previously dx. 2014 also dx. 2014 with multiple uterine fibroids sub - mucosal; will re- evaluate with transvagin al U\S today & refer as needed. History of endometriosis [id number] 5026023 Z87.42 previously dx. 10\\2016 [id number] Keaton Swartz MD [facility] [address] [place] [address] 01/28/2020 12:07:24 01/28/2020 13:31:20 Lung mass 040051828 R91.8 Bronchosco py to be scheduled OR is available Essential hypertension 76208418 I10 Continue medication s as prescribed by PCP. BP 179/97, BP rechecked Tobacco user 927222478 Z 72.0 smoking cessation [id number] Bettye Stallworth MD [facility] (Adult/Fa m Med) [address] [place] [address] 03/02/2020 10:34:56 03/06/2020 15:37:49 Chronic back pain 639637892 G89.29 abnormal MRIseen in the ERmeds are not helpingpai n is worse. Chronic ob structive pulmonary disease 16998790 J44.[address] stable massseen by pulmonary Essential hypertension 29328455 I10 better now. to stop smoking [id number] Bettye Stallworth MD [facility] (Adult/Fa m Med) [address] [place] [address] 11/15/2020 11:48:07 11/15/2020 15:24:37 Chronic back pain 153320203 G89.29 Chronic ob structive pulmonary disease 71082261 J44.[address] stable massseen by pulmonary Essential hypertension 20667002 I10 better now. to stop smoking Tobacco user 773669179 Z 72.0 advised to stop smoking. Raynaud's phenomenon 266 805378 I73.00 in both hands.. neg exam. asking for labs seen in the urgent care [id number] Bettye Stallworth MD [facility] (Adult/Fa m Med) [address] [place] [address] 03/30/2021 10:14:28 03/30/2021 13:40:35 Chronic back pain 087595131 G89.29 abnormal MRIPT/OT not helpingusi ng cane nowasking for stronger pain meds --> not from this officehad pain management beforeaski ng for neurosurge ry referral and to apply for disability Chronic ob structive pulmonary disease 81028658 J44.[address] stable massseen by pulmonary Endometrio sis (clinical) 324203990 N80.9 RN ED referral Essential hypertension 93764821 I10 better now. to stop smoking Mitral valve prolapse 40 5087605 I34.1 contineu Propranolo l Tobacco user 903240015 Z 72.0 advised to stop smoking. [id number] BENJAMIN FITZPATRICK NP [facility] [address] [place] [address] 04/04/2021 11:30:35 04/06/2021 11:00:33 Lung mass 257441751 R91.[address] w/o contrast:IMPRESS ION:=====A nterior mediastina l mass again seen. Subtle changes in measuremen ts are noted.Mini mal increase is possible although difference s are subtle and mayalterna tively be due to technical difference s. Essential hypertension 85538516 I10 Continue medication s as prescribed by PCP. BP 179/97, BP rechecked Tobacco user 097846963 Z 72.0 smoking cessation Chronic bronchitis 29737 004 J42 CXRalbuter ol as neededPFT, 6 min walk Laboratory test result abnormal 982729761 R89.9 Bronchosco py -Bronchial washing- negative for malignancy benign reactive bronchial cell and abundant pigmented cell with atypical nuclei. Immunohist ochemical, positive CD68, negative melanA and S100. Immunoprof ile together with morphology is consistent with reactive alveolar macrophage s, no evidence of malignancy Micro- no organisms seenNegati ve acid/smear + culture Negative for malignancy , positive CD68, negative melanA and S100. Immunoprof ile together with morphology is consistent with reactive alveolar macrophage s.Refer to Hematologi st for + CD68 and w/u [id number] BENJAMIN FITZPATRICK NP [facility] [address] [place] [address] 07/04/2021 10:29:34 07/04/2021 14:59:58 Tobacco user 475287409 Z72.0 smoking cessation discussed Hypertrophy of thymus [address] w/o contrast 04/24/21IMP RESSION:1. Anterior mediastina l mass is again visualized and demonstrat es a morphology typical of residual thymic tissue, although uncommon in a patient of this age.There has been slow interval growth since 02/19/2018, therefore underlying neoplasm, possibly low-grade, cannot be excluded. Sampling or PET/CT should beconsider ed for further characteri zation.2. Several small stable pulmonary nodules. No specific follow-up necessary. Sent referral to throacic surgeon for biopsy 05/01/21, pt was seen 05/22/2111 /- right roboticall y assisted thymectomy , performed by Dr. Leigh Hematology screening test 511331851 Z13.0 Bronchosco py - Bronchial washing- negative for malignancy benign reactive bronchial cell and abundant pigmented cell with atypical nuclei. Immunohist ochemical, positive CD68, negative melanA and S100. Immunoprof ile together with morphology is consistent with reactive alveolar macrophage s, no evidence of malignancy Micro- no organisms seen Negative acid/smear + culture Negative for malignancy , positive CD68, negative melanA and S100. Immunoprof ile together with morphology is consistent with reactive alveolar macrophage s. referred to Hematologi st Dr. Tom for + CD68 and w/u, seen 05/07/21Und ergoing w/u for inflammato ry disorder and Anemia Chronic bronchitis 02053 004 J42 Continue MDI, Symbicort, albuterol as needed Essential hypertension 54627777 I10 Continue medication s as prescribed by PCP. BP 179/97, BP rechecked Reactive a irway disease 2776514414 06 J45.909 Continue albuterol as neededAddi ng SymbicortM DI teaching/t echnique Multiple n odules of lung 460704307 R91.[address] w/o contrast 04/24/21IMP RESSION: 2. Several small stable pulmonary nodules. No specific follow-up necessary. History of cocaine abuse 8622292516 18864 F14.11 Clean 5 months, went to rehab, has sponsor and is attending meetings History of alcoholism 16 6761463 F10.21 clean 5 months [id number] Bettye Stallworth MD [facility] (Adult/Fa m Med) [address] [place] [address] 07/31/2021 10:30:25 07/31/2021 17:26:16 Chronic back pain 959881737 G89.29 abnormal MRIPT/OT not helpingusi ng cane nowhad pain management before Chronic ob structive pulmonary disease 19553086 J44.[address] stable massseen by pulmonary Essential hypertension 70819448 I10 better now. 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 [facility] nowasking for neuro F/U [id number] BENJAMIN FITZPATRICK NP [facility] [address] [place] [address] 11/19/2021 11:39:13 11/19/2021 15:06:47 Reactive airway disease 2965874534 06 J45.909 Continue albuterol as neededAddi ng Symbicort , has picked up but not using consistent lyMDI teaching/t echniqueEd ucated on importance of daily use Tobacco user 819970766 Z 72.0 smoking cessation discussed Hypertrophy of thymus [address] w/o contrast 04/24/21IMP RESSION:1. Anterior mediastina l mass is again visualized and demonstrat es a morphology typical of residual thymic tissue, although uncommon in a patient of this age.There has been slow interval growth since 02/19/2018, therefore underlying neoplasm, possibly low-grade, cannot be excluded. Sampling or PET/CT should beconsider ed for further characteri zation.2. Several small stable pulmonary nodules. No specific follow-up necessary. Sent referral to throacic surgeon for biopsy 05/01/21, pt was seen 05/22/2111 /- right roboticall y assisted thymectomy , performed by Dr. Leigh Has not has f/u appointmen t Hematology screening test 457452462 Z13.0 Bronchosco py - Bronchial washing- negative for malignancy benign reactive bronchial cell and abundant pigmented cell with atypical nuclei. Immunohist ochemical, positive CD68, negative melanA and S100. Immunoprof ile together with morphology is consistent with reactive alveolar macrophage s, no evidence of malignancy Micro- no organisms seen Negative acid/smear + culture Negative for malignancy , positive CD68, negative melanA and S100. Immunoprof ile together with morphology is consistent with reactive alveolar macrophage s. referred to Hematologi st Dr. Tom for + CD68 and w/u, seen 05/07/21Und ergoing w/u for inflammato ry disorder and Anemia Multiple n odules of lung 857749398 R91.[address] w/o contrast 04/24/21IMP RESSION:2. Several small stable pulmonary nodules. No specific follow-up necessary. History of cocaine abuse 2010673310 75653 F14.11 Clean 9 months, went to rehab, has sponsor and is attending meetings Essential hypertension 91872392 I10 Managed in primary care. Continue to monitor blood pressure. Encourage low salt diet and exercise. Chest discomfort 7700021 09 R07.89 Will get CXR today06/20- right roboticall y assisted thymectomy , performed by Dr. Leighrep orts some right chest tingling/ prickling sensation at siteShe has not had f/u with Dr. Leigh since procedure, encouraged her to contact office for f/u appointmen t Lung funct ion restrictive 970038419 R94.2 Continue MDI, Symbicort, albuterol as neededInst ructed on importance of daily use Marijuana user 636038695 F12.90 Encouraged smoking cessation History of alcoholism 16 6079031 F10.21 reports social drinking only [id number] Bettye Stallworth MD [facility] (Adult/Fa m Med) [address] [place] [address] 11/29/2021 11:06:55 11/29/2021 14:52:03 Chronic back pain 880097436 G89.29 abnormal MRIPT/OT not helpingusi ng cane nowhad pain management before Chronic ob structive pulmonary disease 23578608 J44.[address] stable massseen by pulmonary Thymoma 253030970 D49.89 [facility] last monthbehelen gramajo [id number] BENJAMIN FITZPATRICK NP [facility] [address] [address] 05/21/2022 10:55:27 05/22/2022 09:59:05 Reactive airway disease 7613658929 06 J45.909 Continue albuterol as neededStre ss importance of daily use of maintenanc e inhalerMDI teaching/t echniqueEd ucated on importance of daily usenebs as needed Tobacco user 800687901 Z 72.0 smoking cessation discussedN icotine gum refill Hypertrophy of thymus [address] w/o contrast 04/24/21IMP RESSION:1. Anterior mediastina l mass is again visualized and demonstrat es a morphology typical of residual thymic tissue, although uncommon in a patient of this age.There has been slow interval growth since 02/19/2018, therefore underlying neoplasm, possibly low-grade, cannot be excluded. Sampling or PET/CT should beconsider ed for further characteri zation.2. Several small stable pulmonary nodules. No specific follow-up necessary. Sent referral to throacic surgeon for biopsy 05/01/21, pt was seen 05/22/2111 /- right roboticall y assisted thymectomy , performed by Dr. Leigh Has not had f/u appointmen t Hematology screening test 022348825 Z13.0 Bronchosco py - Bronchial washing- negative for malignancy benign reactive bronchial cell and abundant pigmented cell with atypical nuclei. Immunohist ochemical, positive CD68, negative melanA and S100. Immunoprof ile together with morphology is consistent with reactive alveolar macrophage s, no evidence of malignancy Micro- no organisms seen Negative acid/smear + culture Negative for malignancy , positive CD68, negative melanA and S100. Immuno profile together with morphology is consistent with reactive alveolar macrophage s. referred to Hematologi st Dr. Tom for + CD68 and w/u, seen 05/07/21, has not been seen for f/u.Underg oing w/u for inflammato ry disorder and AnemiaDr. Tom's informatio n given to Ms. Ruiz for f/u if needed Lung funct ion restrictive 284761638 R94.2 Continue MDI, Advair , albuterol as neededInst ructed on importance of daily use Multiple n odules of lung 402152258 R91.[address] w/o contrast 12/17/21:IM PRESSION:1 . Interval removal of right pericardia l and anterior mediastina l masses withtrace scarring versus residual thymic tissue within the anterior mediastinu m.No acute or localizing intrathora cic abnormalit y.2. Early emphysema with multiple long-stand ing stable subcentime ter pulmonaryn odules bilaterall y. No new or enlarging pulmonary nodule. History of cocaine abuse 9809450617 60939 F14.11 Clean 9 months, completed rehab, has sponsor, attending meetings Marijuana user 395040663 F12.90 Smoking dailyEncou raged smoking cessation Essential hypertension 84518131 I10 Not well controlled , elevated, asymptomat icManaged in primary care. Continue to monitor blood pressure. Encourage low salt diet and exercise. History of alcoholism 16 4449728 F10.21 social drinking Raynaud's phenomenon 266 907596 I73.00 [id number] Bettye Stallworth MD [facility] (Adult/Fa m Med) [address] [place] [address] 05/23/2022 11:02:19 05/23/2022 14:51:41 Chronic back pain 788472018 G89.29 abnormal MRIPT/OT not helpingusi ng cane nowseen by pain management Essential hypertension 04483607 I10 hypotensiv e nowasympto matic Endometrio sis (clinical) 993463876 N80.9 RN ED referral Transient cerebral ischemia 554726907 G45.9 all resolved now Administra tion of influenza vaccine 49175271 Z23 Disability 08485335 Z78. 9 denied many times beforenow her chief nurse send new formform filled. [id number] Bettye Stallworth MD [facility] (Adult/Fa m Med) [address] [place] [address] 08/20/2022 10:55:19 08/20/2022 18:45:21 [id number] Keaton Swartz MD [facility] [address] [place] [address] 03/12/2023 15:18:30 03/13/2023 13:53:11 Tobacco dependence syndrome 10007577 F17.200 smoking cessation Acute bronchitis 2213520 2 J20.9 Asthma 041447019 J45.90 9 Reactive a irway disease 2303001476 06 J45.909 Continue albuterol as neededStre ss importance of daily use of maintenanc e inhalerMDI teaching/t echniqueEd ucated on importance of daily usenebs as needed Tobacco user 814196264 Z 72.0 smoking cessation discussedN icotine gum refill Hypertrophy of thymus [address] w/o contrast 04/24/21IMP RESSION:1. Anterior mediastina l mass is again visualized and demonstrat es a morphology typical of residual thymic tissue, although uncommon in a patient of this age.There has been slow interval growth since 02/19/2018, therefore underlying neoplasm, possibly low-grade, cannot be excluded. Sampling or PET/CT should beconsider ed for further characteri zation.2. Several small stable pulmonary nodules. No specific follow-up necessary. Sent referral to throacic surgeon for biopsy 05/01/21, pt was seen 05/22/2111 /- right roboticall y assisted thymectomy , performed by Dr. Leigh Has not had f/u appointmen t Lung funct ion restrictive 701188942 R94.2 Continue MDI, Advair , albuterol as neededInst ructed on importance of daily use Hematology screening test 866037212 Z13.0 Bronchosco py - Bronchial washing- negative for malignancy benign reactive bronchial cell and abundant pigmented cell with atypical nuclei. Immunohist ochemical, positive CD68, negative melanA and S100. Immunoprof ile together with morphology is consistent with reactive alveolar macrophage s, no evidence of malignancy Micro- no organisms seen Negative acid/smear + culture Negative for malignancy , positive CD68, negative melanA and S100. Immuno profile together with morphology is consistent with reactive alveolar macrophage s. referred to Hematologi st Dr. Tom for + CD68 and w/u, seen 05/07/21, has not been seen for f/u.Underg oing w/u for inflammato ry disorder and AnemiaDr. Tom's informatio n given to Ms. Ruiz for f/u if needed Multiple n odules of lung 784748183 R91.[address] w/o contrast 12/17/21:IM PRESSION:1 . Interval removal of right pericardia l and anterior mediastina l masses withtrace scarring versus residual thymic tissue within the anterior mediastinu m.No acute or localizing intrathora cic abnormalit y.2. Early emphysema with multiple long-stand ing stable subcentime ter pulmonaryn odules bilaterall y. No new or enlarging pulmonary nodule. History of cocaine abuse 9468058179 40728 F14.11 Clean 9 months, completed rehab, has sponsor, attending meetings Marijuana user 578878529 F12.90 Smoking dailyEncou raged smoking cessation Essential hypertension 97663650 I10 Not well controlled , elevated, asymptomat icManaged in primary care. Continue to monitor blood pressure. Encourage low salt diet and exercise. History of alcoholism 16 1569969 F10.21 social drinking Raynaud's phenomenon 266 536633 I73.00 [id number] Bettye Stallworth MD [facility] (Adult/Fa m Med) [address] [place] [address] 02/28/2023 10:34:27 02/28/2023 13:33:22 Body mass index 20-24 - normal 298801095 Z68.20 Smoker 97814233 F17.200 Chronic back pain 369194 002 G89.29 abnormal MRIPT/OTse en by pain management had surgery at [facility] / better now Essential hypertension 60960841 I10 hypotensiv e nowasympto matic Chronic ob structive pulmonary disease 52930185 J44.[address] stable massseen by pulmonary Pain of ri ght knee joint 5471190856 51758 M25.561 with effusionse en at urgent care [id number] Erik Menezes MD [facility] [address] [place] [address] 03/27/2023 10:01:44 03/28/2023 08:58:45 Derangement of posterior horn of medial meniscus of right knee 4041101651 1040609 M23.321 Chondromal acia of right patella 8099017132 3033558 M22.41 Osteoarthr itis of right knee joint 8746951488 35999 M17.11 [id number] Bettye Stallworth MD [facility] (Adult/Fa m Med) [address] [place] [address] 03/26/2023 12:03:59 03/27/2023 15:32:22 Chronic back pain 491924010 G89.29 abnormal MRIPT/OTse en by pain management had surgery at [facility] / [facility] now Essential hypertension 30254685 I10 hypotensiv e nowasympto matic Chronic ob structive pulmonary disease 02231665 J44.[address] stable massseen by pulmonary Transient cerebral ischemia 805485748 G45.9 all resolved now Pain of ri ght knee joint 9785266218 00608 M25.561 with effusionse en at urgent care Chronic bronchitis 63391 004 J42 Hemorrhoids 22838001 K64 .9 [id number] KHURRAM HAMMOND [facility] [address] [place] [address] 07/02/2023 10:44:12 07/02/2023 13:13:17 Painful rectal bleeding 754753928 K62.5 fecal calprotect in to eval for possible IBD. Will checks labs and await colonsocop y results Internal hemorrhoids 904 13676 K64.8 continue fiber daily. Await colonscopy results [id number] Erik Menezes MD [facility] [address] [place] [address] 07/04/2023 09:42:48 07/06/2023 17:55:25 Derangement of posterior horn of medial meniscus of right knee [id number] M23.321 Chondromal acia of right patella 2766811690 6645519 M22.41 Osteoarthr itis of right knee joint 3128714351 86543 M17.11 [id number] Keaton Swartz MD [facility] [address] [place] [address] 08/13/2023 10:25:01 08/19/2023 13:57:20 Reactive airway disease [id number] 06 J45.909 Continue albuterol as neededStre ss importance of daily use of maintenanc e inhalerMDI teaching/t echniqueEd ucated on importance of daily usenebs as needed Tobacco user 594537077 Z 72.0 smoking cessation discussedN icotine gum refill Hypertrophy of thymus [address] w/o contrast 04/24/21IMP RESSION:1. Anterior mediastina l mass is again visualized and demonstrat es a morphology typical of residual thymic tissue, although uncommon in a patient of this age.There has been slow interval growth since 02/19/2018, therefore underlying neoplasm, possibly low-grade, cannot be excluded. Sampling or PET/CT should beconsider ed for further characteri zation.2. Several small stable pulmonary nodules. No specific follow-up necessary. Sent referral to throacic surgeon for biopsy 05/01/21, pt was seen 05/22/2111 /- right roboticall y assisted thymectomy , performed by Dr. Leigh Has not had f/u appointmen t Lung funct ion restrictive [id number] R94.2 Continue MDI, Advair , albuterol as neededInst ructed on importance of daily use Hematology screening test 063028134 Z13.0 Bronchosco py - Bronchial washing- negative for malignancy benign reactive bronchial cell and abundant pigmented cell with atypical nuclei. Immunohist ochemical, positive CD68, negative melanA and S100. Immunoprof ile together with morphology is consistent with reactive alveolar macrophage s, no evidence of malignancy Micro- no organisms seen Negative acid/smear + culture Negative for malignancy , positive CD68, negative melanA and S100. Immuno profile together with morphology is consistent with reactive alveolar macrophage s. referred to Hematologi st Dr. Tom for + CD68 and w/u, seen 05/07/21, has not been seen for f/u.Underg oing w/u for inflammato ry disorder and AnemiaDr. Tom's informatio n given to Ms. Ruiz for f/u if needed Multiple n odules of lung 988170134 R91.[address] w/o contrast 12/17/21:IM PRESSION:1 . Interval removal of right pericardia l and anterior mediastina l masses withtrace scarring versus residual thymic tissue within the anterior mediastinu m.No acute or localizing intrathora cic abnormalit y.2. Early emphysema with multiple long-stand ing stable subcentime ter pulmonaryn odules bilaterall y. No new or enlarging pulmonary nodule. History of cocaine abuse 4327980778 82584 F14.11 Clean 9 months, completed rehab, has sponsor, attending meetings Marijuana user 763055598 F12.90 Smoking dailyEncou raged smoking cessation Essential hypertension 63230649 I10 Not well controlled , elevated, asymptomat icManaged in primary care. Continue to monitor blood pressure. Encourage low salt diet and exercise. History of alcoholism 16 6243382 F10.21 social drinking Raynaud's phenomenon 266 469218 I73.00 Tobacco de pendence syndrome 53621330 F17.200 smoking cessation Acute bronchitis 7343768 2 J20.9 Asthma 350177239 J45.90 9 Chronic ob structive pulmonary disease 74188946 J44.9 Nicotine dependence 5629 4008 F17.442 [id number] Bettye Stallworth MD [facility] (Adult/Fa m Med) [address] [place] [address] 09/24/2023 13:28:57 09/24/2023 14:49:19 Chronic back pain 308853762 G89.29 abnormal MRIPT/OTse en by pain management had surgery [facility] / better nowoff tramadol per insuranced oing fine without it Essential hypertension 66881367 I10 hypotensiv e nowasympto matic Chronic ob structive pulmonary disease 23978216 J44.[address] stable massseen by pulmonary Tobacco user 502837970 Z 72.0 advised to stop smoking. [id number] Bettye Stallworth MD [facility] (Adult/Fa m Med) [address] [place] [address] 12/25/2023 10:27:12 12/25/2023 14:48:37 Essential hypertension 97380752 I10 asymptomat ic Chronic ob structive pulmonary disease 58415126 J44.[address] stable massseen by pulmonary Cellulitis of foot 23935 6007 L03.119 right footbetter seen in the ER at [facility] [id number] DASIA SANTIAGO NP [address] [address] 03/17/2024 11:25:04 03/18/2024 11:08:02 Body mass index 20-24 - normal 971377929 Z68.20 Exposure t o SARS-CoV-2 399309650 Z20.007 [id number] Bettye Stallworth MD [facility] (Adult/Fa m Med) [address] [place] [address] 04/14/2024 09:50:24 04/16/2024 08:32:47 Screening mammography 90790708 Z12.31 Essential hypertension 89961266 I10 asymptomat ic Lumbar radiculopathy 128 937571 M54.16 Pain of ri ght knee joint 5025475878 77152 M25.561 with effusionse en at urgent care Adult heal th examination 045577839 Z00.00 Chronic back pain 931477 002 G89.29 [id number] Bettye Stallworth MD [facility] (Adult/Fa m Med) [address] [place] [address] 08/03/2024 10:34:25 08/03/2024 13:03:15 Essential hypertension 80881602 I10 asymptomat ic Chronic ob structive pulmonary disease 76249791 J44.[address] stable massseen by pulmonarya sking for cxr? Pain of ri ght knee joint 2955866467 17491 M25.561 with effusionse en at urgent careasking for ortho Chronic back pain 412596 002 G89.29 had spinal fusionaski ng for stronger meds? [id number] Keaton Swartz MD [facility] [address] [place] [address] 10/27/2024 11:06:35 10/27/2024 14:27:50 Nicotine dependence 45635586 F17.200 smoking cessation Reactive a irway disease 2107329708 06 J45.909 Continue albuterol as neededStre ss importance of daily use of maintenanc e inhalerMDI teaching/t echniqueEd ucated on importance of daily usenebs as needed Tobacco user 351126812 Z 72.0 smoking cessation discussedN icotine gum refill Alcohol dependence 21793 003 F10.20 abstinence from etoh Drug abuse 22472547 F19. 10 abstinence from drug use [id number] LIANE ROB NP [facility] [address] [place] [address] 11/01/2024 11:07:42 11/02/2024 15:18:42 Hypertensive disorder 00329207 I10 Chronic pain 67959105 G8 9.29 Hypertensive urgency 443 135840 I16.0 [id number] Bettye Stallworth MD [facility] (Adult/Fa m Med) [address] [place] [address] 11/05/2024 09:33:22 11/08/2024 14:00:03 Smoker 74858344 F17.200 Chronic back pain 190687 002 G89.29 had spinal fusionaski ng for stronger meds? Essential hypertension 58102445 I10 asymptomat icnot controlled given clonidine in the ERrto x 1 week for labs / check BP Health Concerns Section Related Observation LastModified by Organization Detai ls LastModified Time None Recorded Concern Status LastModified by Organization Details LastModified Time None Recorded Advance Directives Directive N: Payers Encounter Date Sequence Insurance Name Policy Number Policy Lin Covered Member ID Lin Member ID Guarantor Name 08/03/2024 1 [facility] - DOS ON OR AFTER 21 (MEDICAID REPLACEMENT - HMO) Miguel Angel Ruiz [id number] Skinny Ruiz 10/27/2024 1 [facility] - DOS ON OR AFTER 21 (MEDICAID REPLACEMENT - HMO) Miguel Angel Ruiz [id number] Skinny Ruiz 11/01/2024 1 [facility] - DOS ON OR AFTER 21 (MEDICAID REPLACEMENT - HMO) Miguel Angel Ruiz [id number] Skinny Ruiz 11/05/2024 1 [facility] - DOS ON OR AFTER 21 (MEDICAID REPLACEMENT - HMO) Miguel Angel Ruiz [id number] Skinny Ruiz Notes Date Note Type Note Provider Name and Address Organization Details Recorded Time 08/03/2024 text/html no new complaints Bettye Stallworth MD Attn: [address] [place], [address], [facility] 08/03/2024 11:14:44 10/27/2024 text/html here for follow up Continue to smoke 1/2 PPD .cousin smokes at homeETOH use 2 beers 3--4 times per week.[place] twice per weekscrewdriver twice per weeksnorts cocaine twice a weeksmokes marijuana daily has not been using her MDI for 6 months denies wheezing, chest tightness, CPSOB with exertionhas a cough with clear phlegmChest ct w/o contrast 12/17/21:IMPRESSION:1. Interval removal of right pericardial and anterior mediastinal masses withtrace scarring versus residual thymic tissue within the anterior mediastinum.No acute or localizing intrathoracic abnormality.2. Early emphysema with multiple long-standing stable subcentimeter pulmonarynodules bilaterally. No new or enlarging pulmonary nodule.PFT 04/24/21FVC: 40 %, FEV1: 42 %... 35 % change post broncho, FEV1/FVC ratio: 85 %, T %, RV:114 %, DLCO: 46%restriction, and significant response to BD. Severe ventilation/perfusion mismatchChest ct w/o contrast 04/24/21IMPRESSION:1. Anterior mediastinal mass is again visualized and demonstrates a morphologytypical of residual thymic tissue, although uncommon in a patient of this age.There has been slow interval growth since 02/19/2018, therefore underlyingneoplasm, possibly low-grade, cannot be excluded. Sampling or PET/CT should beconsidered for further characterization.2. Several small stable pulmonary nodules. No specific follow-up necessary. Keaton Swartz MD [address] [place], [address], [facility] 10/27/2024 11:52:01 11/01/2024 text/html Pt is a 54 yo fe male who reports acute on chronic low back pain radiating to hips and pelvis area; Pt's b/p is elevated; states she took her meds today as prescribed; (pt has hx of tia) LIANE ROB NP Attn: [address] [place], [address], [facility] 11/01/2024 11:48:43 11/05/2024 text/html no new complaints Bettye Stallworth MD Attn: [address] [place], [address], [facility] 11/05/2024 10:13:52 OBGyn Episode No OBEpisode recorded.
[2024-11-17] MEDS: LIDOCAINE 5% PATCH 1 PATCH TRANSDERM (14:50)
[2024-11-17] MEDS: HYDROmorphone HCL INJ (*CRX) 2 MG/ML VIAL 1 MG IM (14:50)
[2024-11-17] MEDS: ORPHENADRINE CITRATE 100 MG TABLET.ER PO (14:50)
--- OUTSIDE RECORDS SUMMARY | 2024-11-17 15:57 | XMS_ITS | Encounter Summary ---
Author Organization [facility] Address [address] [facility] [place] [address] Care Team Providers Care Cashier Office Name Role Phone Unavailable Primary Care Provider [...] Office Visit [facility] - [facility] [address] [place] [address], [place] [address] Juan M Neal MD [address] [place] [address] [place] [address] documented as of this encounter Visit Diagnoses Not on filedocumented in this encounter
--- OUTSIDE RECORDS SUMMARY | 2024-11-17 15:57 | XMS_ITS | Referral Summary ---
Author Organization [facility] Address [address] [place] [address] Care Team Providers Care Senior Design Engineer Name Role Phone Kojo Stallworth MD Primary Care Provider [phone] Encounters Date Type Department Care Team Description 11/01/2024 5:01 PM CDT - 11/01/2024 6:45 PM CDT Emergency [address] [id number] Bilateral hip pain (Primary Dx) Discharge Disposition: [...] 06/25/2021 Assessment & Plan (06/26/2021 7:17 PM DISPATCHER SHIP PILOT): Patient presented with left-sided facial drooping with suspicion for acute or subacute stroke. CT scan was negative. Treat with aspirin and statins. Will initiate stroke workup and get 2D echo and carotid Doppler. Neurology has been consulted 06/26/21-Pt still complaining of severe headaches.Will get MRI today.BUN/Creat is improved.Cont to monitor closely. Dehydration 06/25/2021 Assessment & Plan (06/25/2021 1:11 PM DISPATCHER SHIP PILOT): Treat with IV fluids. DEVIN (acute kidney injury) 06/25/2021 Assessment & Plan (06/25/2021 1:12 PM DISPATCHER SHIP PILOT): Patient presented with hypotension and elevated creatinine likely secondary to dehydration. Treat with IV fluids. Monitor BMP closely Acute cystitis 06/25/2021 Assessment & Plan (06/25/2021 10:01 PM DISPATCHER SHIP PILOT): Pt c/o of flank pain and found to be hypotensive.Treated with iv fluids and iv antibiotics.Cont iv Rocephine. Left-sided headache 06/24/2021 Assessment & Plan (06/25/2021 1:08 PM DISPATCHER SHIP PILOT): Patient presented with left-sided headache. Treat with pain management. 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 [...] drink = 0.6 oz pur e alcohol) [facility] Tech[employer] Answer Date Recorded In the past 12 months has e [employer], gas, oil, or water [employer] threatened to shut off services in your [...] any clubs o r organizations such as congregational groups, unions, fraternal or athletic groups, or [...] place to sleep or slept in a halfway (including now)? No 11/20/2023 Personal Safety Answer Date Recorded Have you ever been in or are you currently in a harmful physical or emotional relationship or is someone making you feel afraid or unsafe? Denies 11/01/2024 Comments No Sex and Gender Information Value Date Recorded Sex Assigned at Not on file Legal Sex Female 3:20 AM DISPATCHER SHIP PILOT Gender Identity Not on file Sexual Orientation [...] There are multiple phleboliths in the pelvis. Tqlectrg-te-trtwu amount of stool in the visualized colon. IMPRESSION: No acute osseous abnormality. 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 THIS IS AN ELECTRONICALLY VERIFIED FINAL REPORT 11/01/2024 1:53 PM - Electronically signed by Murray Blanco M.D. AM T: Report ID: [id number] Reading Location: [id number] Procedure Note Murray Blanco MD - 11/01/2024 [...] island. There are multiplephleboliths in the pelvis. Uzhlplvb-qf-hupef amount of stool in the visualized colon. IMPRESSION: No acute osseous abnormality. 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 THIS IS AN ELECTRONICALLY VERIFIED FINAL REPORT 11/01/2024 1:53 PM - Electronically signed by Murray Blanco M.D. AM T: Report ID: [id number] Reading Location: [place] [address] Maggie HAMMOND IMG XR PROCEDURES Final Resul t from Last 3 Months Insurance [facility] Advance Directives For more information, please contact: [phone] * Full Code (Latest Code Status on File) Date Activated Date Inactivated Comments 11/18/2023 10:59 PM 11/21/2023 9:16 PM * Full Code Date Activated Date Inactivated Comments 06/24/2021 4:20 PM 06/27/2021 8:53 PM * Full Code Date Activated Date Inactivated Comments 06/20/2021 6:00 PM 06/22/2021 10:15 PM Care Teams Senior Design Engineer Relationship Specialty Start Date End Date Kojo Stallworth MD PCP - General 12/24/18
--- OUTSIDE RECORDS SUMMARY | 2024-11-17 15:57 | XMS_ITS | Clinical Summary ---
Author Organization [facility] Address [address] [place] [address] Care Team Providers Care Stand In Name Role Phone Unavailable Primary Care Provider Unavailabl e Source Comments [facility],non-owned Affiliates and Associated Physician Practices is amultiple site organization consisting of ambulatory clinics and hospital sitesin [place], [place] and [place]. This disclosure is being madepursuant to the Care Everywhere program and may not contain all information available regarding this patient. Last updated 18.[facility] Allergies No known active allergies Medications * [...] ADMIN 0.3 ML INTO LEFT DELTOID MUSCLE. JOB COACHING: [email or web address], VIS: 07/11/22, LOT: [id number], EXP DATE: 09/03/23. VIS GIVEN: 10/14/22 0.3 [...] (06/11/2022): Added automatically from request for surgery [id number] Last Assessment & Plan: Patient is status [...] Only [facility] [address] [facility], [place] [address] Juan M Neal MD S/P lumbar fusion [...] Office Visit [facility] [address] [place] [address], [place] [address] CoppensJuan M MD [address] [place] [address] [place] [address] Health Maintenance Due Date Last Done Comments [...] this topic Medical Devices Implanted Type Area Automotive Parts Person Device Identifier Shelf Expiration Date Model / Serial / Lot Ventura Spinal Graft/Ventura Dbf Inject 9cc Implanted:Qty: 1 on 10/03/2022 by Juan M Neal MD at [facility] N/A: Spine Lumbar Med[employer] Inc 08/22/2024 [id number] / [id number] / N/A Screw Set Ti Spnl Brk Off Cd Hzn Nonster Implanted:Qty: 6 on 10/03/2022 by Juan M Neal MD at [facility] N/A: Spine Lumbar [employer] Inc [id number] / / Screw 7.5mm 50mm Ma Spne Solera Cd Hzn Implanted:Qty: 4 on 10/03/2022 by Juan M Neal MD at [facility] N/A: Spine Lumbar [employer] Inc [id number] / / Screw 7.5mm 40mm Ma Spne Solera Cd Hzn Implanted:Qty: 2 on 10/03/2022 by Juan M Neal MD at [facility] N/A: Spine Lumbar [employer] Inc [id number] / / Spcr Spnl 7mm Catalyft Pl Lng - Sn/A Implanted:Qty: 2 on 10/03/2022 by Juan M Neal MD at [facility] N/A: Spine Lumbar Medtronic Sofamor Danek Spine 08/23/2030 [id number] / N/A / [id number] Medtronic Ventura Dbf Inject 9cc Implanted:Qty: 1 on 10/03/2022 by Juan M Neal MD at [facility] N/A: Spine Lumbar Med[employer]onic Inc 08/14/2024 [id number] / [id number] / N/A Bang Spnl 60mm 5.5mm Cd Hzn Crv Ti Cp4 - Sn/A Implanted:Qty: 2 on 10/03/2022 by Juan M Neal MD at [facility] N/A: Spine Lumbar Med[employer] Inc [id number] / N/A / N/A Insurance [facility] [place] [address] [facility] [place] [address] [facility] [place] [address] [facility] [place] [address] [place] [address] [facility] [address] [facility] [address] [facility] [place] [address] [place] [address] [facility] [address] [address] [place] [address] [facility] [address] [facility] [place] [address] [facility] [place] [address] [place] [address] [place], [place] [id number] [place] [address] [place] [address] Advance Directives * Full Code (Latest Code Status on File) Date Activated Date Inactivated Comments 10/03/2022 12:13 PM 10/07/2022 12:38 PM
--- OUTSIDE RECORDS SUMMARY | 2024-11-17 15:57 | XMS_ITS | Clinical Summary ---
Author Organization [facility] Address [address] [place] [address] Care Team Providers Care Whip Sawyer Name Role Phone Kojo Stallworth MD Primary Care Provider [phone] Allergies No known active allergies Medications albuterol [...] 06/25/2021 Assessment & Plan (06/26/2021 7:17 PM METAL SPRAYING MACHINE OPERATOR): Patient presented with left-sided facial drooping with suspicion for acute or subacute stroke. CT scan was negative. Treat with aspirin and statins. Will initiate stroke workup and get 2D echo and carotid Doppler. Neurology has been consulted 06/26/21-Pt still complaining of severe headaches.Will get MRI today.BUN/Creat is improved.Cont to monitor closely. Dehydration 06/25/2021 Assessment & Plan (06/25/2021 1:11 PM METAL SPRAYING MACHINE OPERATOR): Treat with IV fluids. DEVIN (acute kidney injury) 06/25/2021 Assessment & Plan (06/25/2021 1:12 PM METAL SPRAYING MACHINE OPERATOR): Patient presented with hypotension and elevated creatinine likely secondary to dehydration. Treat with IV fluids. Monitor BMP closely Acute cystitis 06/25/2021 Assessment & Plan (06/25/2021 10:01 PM METAL SPRAYING MACHINE OPERATOR): Pt c/o of flank pain and found to be hypotensive.Treated with iv fluids and iv antibiotics.Cont iv Rocephine. Left-sided headache 06/24/2021 Assessment & Plan (06/25/2021 1:08 PM METAL SPRAYING MACHINE OPERATOR): Patient presented with left-sided headache. Treat with pain management. 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 Continue to monitor closely. Anemia 05/07/2021 Encounters Date Type Department Care Team Description 11/01/2024 5:01 PM CDT - 11/01/2024 6:45 PM CDT Emergency [facility] [address] [place] [address] Bilateral hip pain (Primary Dx) Discharge Disposition: [...] drink = 0.6 oz pur e alcohol) [facility] Utilities Answer Date Recorded In the past 12 months has [employer], gas, oil, or water [employer] threatened to shut off services in your [...] often do you attend chur ch or confucianist services? 1 to 4 times per year 11/20/2023 Do you belong to any clubs o r organizations such as protestant groups, unions, fraternal or athletic groups, or [...] place to sleep or slept in a [place] health [place] facility (including now)? No 11/20/2023 Personal Safety Answer Date Recorded Have you ever been in or are you currently in a harmful physical or emotional relationship or is someone making you feel afraid or unsafe? Denies 11/01/2024 Comments No Sex and Gender Information Value Date Recorded Sex Assigned at Not on file Legal Sex Female 3:20 AM METAL SPRAYING MACHINE OPERATOR Gender Identity Not on file Sexual Orientation [...] There are multiple phleboliths in the pelvis. Sdjfvgln-ob-paezg amount of stool in the visualized colon. IMPRESSION: No acute osseous abnormality. 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 THIS IS AN ELECTRONICALLY VERIFIED FINAL REPORT 11/01/2024 1:53 PM - Electronically signed by Murray Blanco M.D. AM T: Report ID: [id number] Reading Location: [id number] Procedure Note Murray Blanco MD - 11/01/2024 [...] island. There are multiplephleboliths in the pelvis. Linmmtzk-eo-inttj amount of stool in the visualized colon. IMPRESSION: No acute osseous abnormality. 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 THIS IS AN ELECTRONICALLY VERIFIED FINAL REPORT 11/01/2024 1:53 PM - Electronically signed by Murray Blanco M.D. AM T: Report ID: [id number] Reading Location: [id number] Maggie HAMMOND IMG XR PROCEDURES Final Resul t from Last 3 Months Insurance Member Subscriber Plan / Payer (Ef fective 2019-Present) Name:RuizSkinny Relation to Subscriber:Self Name:Skinny Ruiz Payer ID:[id number] (NAIC) Group ID:Not on file Type:MEDICAID RISK OTHER Address: [address] [place], [place] [id number] [place] [address] [facility] Advance Directives For more information, please contact: [phone] * Full Code (Latest Code Status on File) Date Activated Date Inactivated Comments 11/18/2023 10:59 PM 11/21/2023 9:16 PM * Full Code Date Activated Date Inactivated Comments 06/24/2021 4:20 PM 06/27/2021 8:53 PM * Full Code Date Activated Date Inactivated Comments 06/20/2021 6:00 PM 06/22/2021 10:15 PM Care Teams Whip Sawyer Relationship Specialty Start Date End Date Kojo Stallworth MD PCP - General 12/24/18
--- OUTSIDE RECORDS SUMMARY | 2024-11-17 15:58 | XMS_ITS | Encounter Summary ---
Author Organization [facility] Health Address [address] [place] [address] Care Team Providers Care Solid Waste Disposal Manager Name Role Phone Unavailable Primary Care Provider Unavailabl e Encounter Details Date Type Department Care Team (Late st Contact Info) Description 11/15/2024 Orders Only [facility] - Neurosurgery [address] [place] [address], [place] [id number] Juan M Neal MD [address] [place] [address] [place] [address] S/P lumbar fusion Social History Tobacco Use [...] Office Visit [facility] - Neurosurgery [address] [place] [address], [place] [address] Juan M Neal MD [address] [place] [address] [place] [address] Scheduled Orders Name Type Priority Associated Diagnoses Orde r Schedule XR Lumbar Spine 4Vw or More Imaging Routine S/P lumbar fusion 1 Occurrences starting 11/15/2024 until 11/15/2025 documented as of this encounter Visit Diagnoses Diagnosis S/P lumbar fusion- Primary Arthrodesis status documented in this encounter
--- OUTSIDE RECORDS SUMMARY | 2024-11-17 15:58 | XMS_ITS | Clinical Summary ---
Author Organization [facility] Address [address] [place] [id number] Care Team Providers Care Bookmobile Clerk Name Role Phone Kojo Stallworth MD Primary Care Provider [phone] Social History Tobacco Use Types Packs/Day Years [...] age to complete this topic Care Teams Bookmobile Clerk Relationship Specialty Start Date End Date Kojo Stallworth MD [address] [address] PCP - General 01/26/15
[2024-11-17 16:05] VITALS: BP 144/80; PULSE 71; RESP 24; O2SAT 99
== END 2024-11-17 16:20 | disposition home or self-care (01) ==
PROVIDERS: Emergency Provider Emergency Medicine
DX: M54.50 Low back pain, unspecified (principal)
CPT/HCPCS: 72131; 73521; 96372; 99284; A9270; J1171